=== PATIENT | female | born 1990 | race Caucasian/White ===

== ENCOUNTER 2018-12-16 19:17 | Emergency (ER) | payer OTHER ==
[2018-12-16 19:54] LABS: Urine Blood NEGATIVE (NEG); Urine Glucose NEGATIVE (NEG); Urine Protein NEGATIVE (NEG); Urine Specific Gravity 1.025 (1.005-1.030); Urine pH 5.5 (5.0-7.0)
[2018-12-16] MEDS ORDERED: ONDANSETRON 4 MG/2 ML VIAL ONE (20:02)
[2018-12-16] MEDS ORDERED: NA CHLORIDE 0.9% 1,000 ML ONE (20:02)
[2018-12-16] MEDS ORDERED: DIPHENOX/ATROP SULF 1 TAB PO ONE (20:02)
[2018-12-16] MEDS ORDERED: ACETAMINOPHEN 325 MG TABLET ONE (20:03)
[2018-12-16 20:13] LABS: Absolute Lymphocytes (CBC) 0.5 K/uL (0.7-4.9); Basophils % 1.6 % (0-1.3); Hematocrit 40.7 % (36.0-45.0); Lymphocytes % 3.7 % (15.3-44.8); MPV 9.7 fL (7.6-11.3); RBC Red Blood Cell Count 4.69 M/uL (3.86-4.86)
[2018-12-16 20:40] LABS: Blood Morphology Comment NOT SEEN (NOT SEEN); Platelet Estimate ADEQ; Urine White Blood Cell Casts OK
[2018-12-16 20:44] LABS: ALT/SGPT 15 U/L (12-78); AST/SGOT 8 U/L (15-37); Albumin 3.2 g/dL (3.4-5.0); Alkaline Phosphatase 58 U/L (45-117); BUN Blood Urea Nitrogen 9 mg/dL (7-18); Bicarbonate 24 mmol/L (21-32); Bilirubin Direct < 0.1 mg/dL (0-0.2); Bilirubin Total 0.2 mg/dL (0.2-1.0); Glucose Level 99 mg/dL (74-106); HCG, Quantitative 5692 mIU/mL (1-3); Lipase 117 U/L (73-393); Potassium 4.3 mmol/L (3.5-5.1); Protein, Total 7.6 g/dL (6.4-8.2); Sodium Level 138 mmol/L (136-145)
[2018-12-16] MEDS ORDERED: NA CHLORIDE 0.9% 500 ML ONE (21:22)
[2018-12-16 22:24] LABS: Absolute Lymphocytes (CBC) 0.7 K/uL (0.7-4.9); Basophils % 0.3 % (0-1.3); Hematocrit 35.5 % (36.0-45.0); Lymphocytes % 4.6 % (15.3-44.8); MPV 9.4 fL (7.6-11.3); RBC Red Blood Cell Count 4.07 M/uL (3.86-4.86)
--- NOTE | 2018-12-16 23:06 | EDPHYS ---
Physician Documentation [facility] Name: Jaqueline Coffman Age: 28 yrs Sex: Female : 1990 Arrival Date: 12/16/2018 Time: 19:20 Bed 27 Private MD: ED Physician Riaz Sargent HPI: 12/16 19:58 This 28 yrs old Female presents to ER via Ambulatory with complaints of pkl Vomiting/Diarrhea, 14 WEEKS , ABD PAIN. 19:58 The patient presents to the emergency department with nausea, vomiting, diarrhea. pkl Onset: The symptoms/episode began/occurred just prior to arrival, 1 hour(s) ago. Patient said she is about 14 weeks . No care at present. CHEMIST STEROIDS: 19:31 1 la1 20:14 LMP 08/12/2018 ea Historical: - Allergies: 19:31 No Known Allergies; la1 - Home Meds: 19:31 None [Active]; la1 - PMHx: 19:31 None; la1 - Immunization history:: Adult Immunizations up to date. - Social history:: Smoking status: Patient/guardian denies using tobacco. - Ebola Screening: : No symptoms or risks identified at this time. ROS: 19:58 Eyes: Negative for injury, pain, redness, and discharge, ENT: Negative for injury, pkl pain, and discharge, Neck: Negative for injury, pain, and swelling, Cardiovascular: Negative for chest pain, palpitations, and edema, Respiratory: Negative for shortness of breath, cough, wheezing, and pleuritic chest pain. 19:58 Abdomen/GI: Positive for nausea, vomiting, and diarrhea. 19:58 Back: Negative for acute changes. 19:58 : Negative for urinary symptoms. 19:58 MS/extremity: Negative for acute changes. 19:58 Skin: Negative for rash. 19:58 Neuro: Negative for altered mental status. Exam: 19:58 Head/Face: Normocephalic, atraumatic. Eyes: Pupils equal round and reactive to light, pkl extra-ocular motions intact. Lids and lashes normal. Conjunctiva and sclera are non-icteric and not injected. Cornea within normal limits. Periorbital areas with no swelling, redness, or edema. ENT: Nares patent. No nasal discharge, no septal abnormalities noted. Tympanic membranes are normal and external auditory canals are clear. Oropharynx with no redness, swelling, or masses, exudates, or evidence of obstruction, uvula midline. Mucous membranes moist. Neck: Trachea midline, no thyromegaly or masses palpated, and no cervical lymphadenopathy. Supple, full range of motion without nuchal rigidity, or vertebral point tenderness. No Meningismus. Chest/axilla: Normal chest wall appearance and motion. Nontender with no deformity. No lesions are appreciated. Cardiovascular: Regular rate and rhythm with a normal S1 and S2. No gallops, murmurs, or rubs. Normal PMI, no JVD. No pulse deficits. Respiratory: Lungs have equal breath sounds bilaterally, clear to auscultation and percussion. No rales, rhonchi or wheezes noted. No increased work of breathing, no retractions or nasal flaring. 19:58 Abdomen/GI: Bowel sounds: active, Palpation: soft, mild abdominal tenderness, in the right upper quadrant and left upper quadrant. 19:58 Back: Exam negative for acute changes. 19:58 : Exam negative for acute changes. 19:58 Musculoskeletal/extremity: Exam is negative for acute changes. 19:58 Skin: Exam negative for rash. 19:58 Neuro: Orientation: is normal, Mentation: is normal, Cranial nerves: grossly normal, Motor: is normal. Vital Signs: 19:31 BP 109 / 73; Pulse 78; Resp 16; Temp 97.8; Pulse Ox 98% on R/A; Weight 68.04 kg; Height la1 5 ft. 3 in. (160.02 cm); 20:00 BP 106 / 72; Pulse 80; Resp 18; Pulse Ox 99% on R/A; ea 21:50 BP 104 / 66; Pulse 64; Resp 18; Pulse Ox 100% on R/A; ea 22:50 BP 110 / 70; Pulse 60; Resp 18; Temp 97.8; Pulse Ox 98% ; ea 19:31 Body Mass Index 26.57 (68.04 kg, 160.02 cm) la1 MDM: 19:33 Patient medically screened. pkl 22:58 Data reviewed: vital signs, nurses notes, lab test result(s), radiologic studies, pkl ultrasound. ED course: Patient feeling better. Discussed lab. and imaging studies with patient. Advised to follow up with PCP in 2 to 3 days. Patient understood instruction. 12/16 19:49 Order name: Urine Dipstick--Ancillary (enter results); Complete Time: 20:18 ar5 12/16 19:49 Order name: Urine --Ancillary (enter results); Complete Time: 20:18 ar5 12/16 19:57 Order name: Basic Metabolic Panel; Complete Time: 21:00 pkl 12/16 19:57 Order name: CBC with Diff; Complete Time: 20:44 pkl 12/16 19:57 Order name: Creatinine for Radiology; Complete Time: 20:44 pkl 12/16 19:57 Order name: Hepatic Function; Complete Time: 21:00 pkl 12/16 19:57 Order name: Lipase; Complete Time: 21:00 pkl 12/16 19:57 Order name: Quantitative Hcg; Complete Time: 21:00 pkl 12/16 19:57 Order name: Rh Typing; Complete Time: 20:44 pkl 12/16 20:19 Order name: CBC Smear Scan; Complete Time: 20:44 EDMS 12/16 20:20 Order name: US Abdomen Limited pkl 12/16 21:43 Order name: CBC with Diff; Complete Time: 22:55 ea 12/16 19:57 Order name: IV Saline Lock; Complete Time: 20:19 pkl 12/16 19:57 Order name: Labs collected and sent; Complete Time: 20:19 pkl 12/16 19:57 Order name: Heart Tones; Complete Time: 20:27 pkl 12/16 21:03 Order name: OB Limited EDMS Administered Medications: 20:13 Drug: Zofran 4 mg Route: IVP; Site: right antecubital; ea 21:58 Follow up: Response: No adverse reaction; Marked relief of symptoms ea 20:19 Drug: NS 0.9% 1000 ml Route: IV; Rate: 1000 ml; Site: right antecubital; ea 21:58 Follow up: Response: No adverse reaction; IV Status: Completed infusion; IV Intake: ea 1000ml 20:19 Drug: Tylenol 650 mg Route: PO; ea 21:58 Follow up: Response: No adverse reaction ea 20:19 Drug: LoMOTIL 1 tabs Route: PO; ea 21:58 Follow up: Response: No adverse reaction ea 21:39 Drug: NS 0.9% 500 ml Route: IV; Rate: bolus; Site: right antecubital; ea 22:18 Follow up: IV Status: Completed infusion; IV Intake: 500ml ea Disposition: 12/16/18 23:04 Discharged to Home. Impression: Gastroenteritis. Leukocytosis. 2 nd trimester . - Condition is Stable. - Prescriptions for Amoxicillin 500 mg Oral Capsule - take 1 capsule by ORAL route every 8 hours for 5 days; 15 tablet. Lomotil 2.5- 0.025 mg Oral Tablet - take 1 tablet by ORAL route once daily As needed; 5 tablet. - Medication Reconciliation Form, Thank You Letter, Antibiotic Education, Prescription Opioid Use form. - Follow up: Private Physician; When: 1 - 2 days; Reason: Re-evaluation by your physician. - Problem is new. - Symptoms have improved. Signatures: Dispatcher [employer] EDMS Riaz Sargent MD MD pkLes Munson RN RN Marion Haider RN RN ea Corrections: (The following items were deleted from the chart) 20:33 20:21 Transvaginal Study (Probe)+[email or web address] ordered. EDVT EDMS 21:03 20:33 TRANSVAG OB ordered. EDVT EDMS 23:21 23:04 12/16/2018 23:04 Discharged to Home. Impression: Gastroenteritis. Leukocytosis. 2 ea nd trimester . Condition is Stable. Forms are Medication Reconciliation Form, Thank You Letter, Antibiotic Education, Prescription Opioid Use. Follow up: Private Physician; When: 1 - 2 days; Reason: Re-evaluation by your physician. Problem is new. Symptoms have improved. pkl
--- NOTE | 2018-12-16 23:06 | ER ---
Nurse's Notes [facility] Name: Jaqueline Coffman Age: 28 yrs Sex: Female : 1990 Arrival Date: 12/16/2018 Time: 19:20 Bed 27 Private MD: Diagnosis: Gastroenteritis. Leukocytosis. 2 nd trimester Presentation: 12/16 19:30 Presenting complaint: Patient states: I am about 14 weeks and started having la1 abd pain, nausea, and diarrhea that began one hour ago. Transition of care: patient was not received from another setting of care. Onset of symptoms was December 16, 2018. Risk Assessment: Do you want to hurt yourself or someone else? Patient reports no desire to harm self or others. Initial Sepsis Screen: Does the patient meet any 2 criteria? No. Patient's initial sepsis screen is negative. Does the patient have a suspected source of infection? No. Patient's initial sepsis screen is negative. Care prior to arrival: None. 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 - Social history:: Smoking status: Patient/guardian denies using tobacco. - Ebola Screening: : No symptoms or risks identified at this time. Screenin:18 Abuse screen: Denies threats or abuse. Nutritional screening: No deficits noted. ea Tuberculosis screening: No symptoms or risk factors identified. Fall Risk None identified. Assessment: 19:50 General: Appears uncomfortable, Behavior is appropriate for age. Pain: Complains of ea pain in left upper quadrant and right upper quadrant. Neuro: Level of Consciousness is awake, alert, obeys commands, Oriented to person, place, time, situation. Cardiovascular: Patient's skin is warm and dry. Respiratory: Airway is patent Respiratory effort is even, unlabored, Respiratory pattern is regular, symmetrical. GI: Abdomen is non-distended, Bowel sounds present X 4 quads. Abdomen is tender to palpation in right upper quadrant and left upper quadrant Reports upper abdominal pain, diarrhea, vomiting. Derm: Skin is pink, warm \T\ dry. 20:26 Reassessment: Patient and/or family updated on plan of care and expected duration. Pain ea level reassessed. Patient is alert, oriented x 3, equal unlabored respirations, skin warm/dry/pink. 21:58 Reassessment: Patient and/or family updated on plan of care and expected duration. Pain ea level reassessed. Patient is alert, oriented x 3, equal unlabored respirations, skin warm/dry/pink. 22:15 Reassessment: Patient and/or family updated on plan of care and expected duration. Pain ea level reassessed. Patient is alert, oriented x 3, equal unlabored respirations, skin warm/dry/pink. Awaiting on lab results. 23:17 Reassessment: Patient and/or family updated on plan of care and expected duration. Pain ea level reassessed. Patient is alert, oriented x 3, equal unlabored respirations, skin warm/dry/pink. Discharge instructions given to patient, verbalized the understanding of instruction. Pt reports she feels better. Pt left ambulatory accompanied by mother, pt tolerating well. Vital Signs: 19:31 BP 109 / 73; Pulse 78; Resp 16; Temp 97.8; Pulse Ox 98% on R/A; Weight 68.04 kg; Height la1 5 ft. 3 in. (160.02 cm); 20:00 BP 106 / 72; Pulse 80; Resp 18; Pulse Ox 99% on R/A; ea 21:50 BP 104 / 66; Pulse 64; Resp 18; Pulse Ox 100% on R/A; ea 22:50 BP 110 / 70; Pulse 60; Resp 18; Temp 97.8; Pulse Ox 98% ; ea 19:31 Body Mass Index 26.57 (68.04 kg, 160.02 cm) la1 Vitals: 20:26 Heart Tones 158. ea ED Course: 19:20 Patient arrived in ED. ag3 19:31 Triage completed. la1 19:31 Arm band placed on left wrist. la1 19:33 Riaz Sargent MD is Attending Physician. pkl 19:52 Marion Valladares RN is Primary Nurse. ea 19:58 Inserted saline lock: 20 gauge in right antecubital area, using aseptic technique. ea Blood collected. 20:18 Patient has correct armband on for positive identification. Bed in low position. Call ea light in reach. 21:03 US Abdomen Limited In Process Unspecified. EDMS 21:03 OB Limited In Process Unspecified. EDMS 23:00 IV discontinued, intact, bleeding controlled, No redness/swelling at site. Pressure ea dressing applied. 23:18 No provider procedures requiring assistance completed. ea Administered Medications: 20:13 Drug: Zofran 4 mg Route: IVP; Site: right antecubital; ea 21:58 Follow up: Response: No adverse reaction; Marked relief of symptoms ea 20:19 Drug: NS 0.9% 1000 ml Route: IV; Rate: 1000 ml; Site: right antecubital; ea 21:58 Follow up: Response: No adverse reaction; IV Status: Completed infusion; IV Intake: ea 1000ml 20:19 Drug: Tylenol 650 mg Route: PO; ea 21:58 Follow up: Response: No adverse reaction ea 20:19 Drug: LoMOTIL 1 tabs Route: PO; ea 21:58 Follow up: Response: No adverse reaction ea 21:39 Drug: NS 0.9% 500 ml Route: IV; Rate: bolus; Site: right antecubital; ea 22:18 Follow up: IV Status: Completed infusion; IV Intake: 500ml ea Intake: 21:58 IV: 1000ml; Total: 1000ml. ea 22:18 IV: 500ml; Total: 1500ml. ea Outcome: 23:04 Discharge ordered by . pksharona 23:19 Discharged to home ambulatory, with family. ea 23:19 Condition: stable 23:19 Discharge instructions given to patient, Instructed on discharge instructions, follow up and referral plans. medication usage, Demonstrated understanding of instructions, follow-up care, medications, Prescriptions given X 2. 23:21 Patient left the ED. ea Signatures: Dispatcher [employer] Riaz Guadarrama MD MD pkl Attema, Lee RN RN Marion Haider, RN RN Wanda Miguel
--- NOTE | 2018-12-17 07:06 | RAD REPORT ---
EXAM DESCRIPTION: US - Abdomen Exam Limited - 12/16/2018 9:01 pm CLINICAL HISTORY: ABD PAIN COMPARISON: No comparisons FINDINGS: No gallstones, sludge or other abnormalities within the gallbladder lumen. There is no wal l thickening or pericholecystic fluid. No common duct stone or biliary tree dilatation identified. IMPRESSION: Normal gallbladder and biliary tree ultrasound.
--- NOTE | 2018-12-17 07:09 | RAD REPORT ---
EXAM DESCRIPTION: US - OB Limited - 12/16/2018 9:01 pm CLINICAL HISTORY: Abdominal pain, Preliminary findings provided at the time of the study. COMPARISON: None. FINDINGS: A single gestation is identified. No gross anatomic abnormality seen. Exam was not perform ed as a dedicated Ob assessment. Heart rate is 143 BPM. measurements are as follows: BPD:3.98 Centimeters 18 weeks 1 day HC:14.310 Centimeters 17 weeks 4 days AC:11.85 Centimeters 17 weeks 4 days HL:2.42 Centimeters 17 weeks 4 days FL:2.41 Centimeters 17 weeks 2 days The estimated gestational age (EGA) is 17 weeks 4 days with an KIRAN of 05/22/2019. The amniotic fluid volume is normal. No maternal adnexal abnormality. IMPRESSION: 1. Single gestation with an EGA of 17 weeks 4 days and an KIRAN of the 05/22/2019. 2. No gross abnormalities are identifiable. Exam is not a dedicated anatomic evaluation. 3. Grade 0, posterior placenta with no low-lying or placenta previa. No abruption or marginal hematom a. 4. Amniotic fluid volume is normal.
== END 2018-12-16 23:21 | disposition home or self-care (01) ==
LOC: ER 19:17
DX: O26.892 Other specified pregnancy related conditions, second trimester (principal); K52.9 Noninfective gastroenteritis and colitis, unspecified; D72.829 Elevated white blood cell count, unspecified
CPT/HCPCS: 36415; 76705; 76815; 80048; 80076; 81003; 81025; 83690; 84702; 85025; 86901; J2405; J7030

== ENCOUNTER 2019-04-26 21:51 | Emergency (ER) | payer OTHER ==
[2019-04-26] MEDS ORDERED: ACETAMINOPHEN 325 MG TABLET ONE (23:26)
[2019-04-26] MEDS ORDERED: ALBUTEROL 2.5 MG/3 ML NEB SOL ONE (23:26)
[2019-04-26] MEDS ORDERED: ACETAMINOPHEN 500 MG TAB ONE (23:28)
--- NOTE | 2019-04-26 23:55 | ER ---
Nurse's Notes [facility] Name: Jaqueline Coffman Age: 29 yrs Sex: Female : 1990 Arrival Date: 04/26/2019 Time: 22:03 Bed 6 Private MD: Diagnosis: Acute upper respiratory infection, unspecified Presentation: 04/26 22:15 Presenting complaint: Patient states: she has had a cough, sore throat, and difficulty bb breathing x 2 days pt is 8 months . Transition of care: patient was not received from another setting of care. Onset of symptoms was April 24, 2019. Risk Assessment: Do you want to hurt yourself or someone else? Patient reports no desire to harm self or others. Initial Sepsis Screen: Does the patient meet any 2 criteria? No. Patient's initial sepsis screen is negative. Does the patient have a suspected source of infection? No. Patient's initial sepsis screen is negative. Care prior to arrival: None. 22:15 Method Of Arrival: Ambulatory bb 22:15 Acuity: ROSALINDA 4 bb Triage Assessment: 22:16 General: Appears in no apparent distress. Behavior is calm, cooperative. Pain: Denies bb pain. EENT: Reports sore throat. Neuro: Level of Consciousness is awake, alert, obeys commands, Oriented to person, place, time, situation. Cardiovascular: Heart tones S1 S2 present Capillary refill < 3 seconds Patient's skin is warm and dry. Respiratory: Airway is patent Respiratory effort is even, unlabored, Respiratory pattern is tachypnea Breath sounds are clear bilaterally. GI: No signs and/or symptoms were reported involving the gastrointestinal system. :. : Reports she is 8 months . Derm: Skin is pink, warm \T\ dry. Musculoskeletal: Circulation, motion, and sensation intact. 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 - Social history:: Smoking status: Patient uses tobacco products, denies chronic smoking, but will smoke occasionally. - Ebola Screening: : No symptoms or risks identified at this time. Screenin:21 Abuse screen: Denies threats or abuse. Nutritional screening: No deficits noted. bb Tuberculosis screening: No symptoms or risk factors identified. Fall Risk None identified. Assessment: 22:21 Reassessment: No changes from previously documented assessment. see triage assessment. bb 23:45 Reassessment: Patient and/or family updated on plan of care and expected duration. Pain bb level reassessed. Patient is alert, oriented x 3, equal unlabored respirations, skin warm/dry/pink. family at bedside. 23:57 Reassessment: pt states she is feeling much better after the breathing treatment pt bb verbalized understanding of and agrees to plan of care discharge instructions given pt ambulated with steady gait to exit accompanied by family. Vital Signs: 22:16 BP 112 / 82; Pulse 109; Resp 22 S; Temp 98.6(O); Pulse Ox 99% on R/A; Weight 77.11 kg bb (R); Height 5 ft. 3 in. (160.02 cm) (R); Pain 0/10; 23:17 BP 118 / 75; Pulse 84; Resp 16 S; Temp 98.8(O); Pulse Ox 99% on R/A; bb 22:16 Body Mass Index 30.11 (77.11 kg, 160.02 cm) bb Vitals: 22:29 Heart Tones: 144. fl ED Course: 22:03 Patient arrived in ED. cf2 22:05 Le Ramirez FNP-C is [facility]. kb 22:05 Riaz Sargent MD is Attending Physician. kb 22:14 Felisha Pastor, YOLIS is Primary Nurse. bb 22:16 Triage completed. bb 22:16 Arm band placed on Patient placed in an exam room, on a stretcher, on pulse oximetry. bb Family accompanied patient. 22:21 Patient has correct armband on for positive identification. Bed in low position. Call bb light in reach. Adult w/ patient. Pulse ox on. NIBP on. 23:58 No provider procedures requiring assistance completed. Patient did not have IV access bb during this emergency room visit. Administered Medications: 23:25 Drug: Albuterol 2.5 mg Route: Inhalation; bb 23:57 Follow up: Response: Marked relief of symptoms bb 23:25 Drug: Tylenol 1000 mg Route: PO; bb 23:57 Follow up: Response: No adverse reaction bb Outcome: 23:54 Discharge ordered by . eliezer 23:58 Discharged to home ambulatory, with family. bb 23:58 Condition: stable 23:58 Discharge instructions given to patient, Instructed on discharge instructions, follow up and referral plans. medication usage, Demonstrated understanding of instructions, follow-up care, medications, Prescriptions given X 1. 23:59 Patient left the ED. bb Signatures: Le Ramirez, CHENTE GERMAN-Felisha Moreira RN RN Rosa Maria Zelaya mt, [place] cf2 Corrections: (The following items were deleted from the chart) 22:26 22:16 Social history: Smoking status: Patient/guardian denies using tobacco, emilie phan
--- NOTE | 2019-04-26 23:55 | EDPHYS ---
Physician Documentation [facility] Name: Jaqueline Coffman Age: 29 yrs Sex: Female : 1990 Arrival Date: 04/26/2019 Time: 22:03 Bed 6 Private MD: ED Physician Riaz Sargent HPI: 04/26 23:20 This 29 yrs old Female presents to ER via Ambulatory with complaints of kb Cough, Sore Throat, Shortness Of Breath. 23:20 The patient or guardian reports cough, that is intermittent, described as mild, kb difficulty breathing. Onset: The symptoms/episode began/occurred 2 day(s) ago. Severity of symptoms: At their worst the symptoms were moderate, in the emergency department the symptoms are unchanged. Modifying factors: The symptoms are alleviated by nothing, the symptoms are aggravated by nothing. Associated signs and symptoms: Pertinent positives: sore throat, Pertinent negatives: chest pain, diarrhea, ear ache, fever, nausea, rhinorrhea, vomiting. The patient has not experienced similar symptoms in the past. The patient has not recently seen a physician. Pt reports cough, sore throat, shortness of breath and chills for 2 days. 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 - Social history:: Smoking status: Patient uses tobacco products, denies chronic smoking, but will smoke occasionally. - Ebola Screening: : No symptoms or risks identified at this time. ROS: 23:18 Constitutional: Negative for fever, chills, and weight loss, Neck: Negative for injury, kb pain, and swelling, Cardiovascular: Negative for chest pain, palpitations, and edema, Abdomen/GI: Negative for abdominal pain, nausea, vomiting, diarrhea, and constipation, MS/Extremity: Negative for injury and deformity, Skin: Negative for injury, rash, and discoloration, Neuro: Negative for headache, weakness, numbness, tingling, and seizure. 23:18 ENT: Positive for rhinorrhea, sinus congestion. 23:18 Respiratory: Positive for cough, shortness of breath. Exam: 23:18 Constitutional: This is a well developed, well nourished patient who is awake, alert, kb and in no acute distress. Head/Face: Normocephalic, atraumatic. ENT: Nares patent. No nasal discharge, no septal abnormalities noted. Tympanic membranes are normal and external auditory canals are clear. Oropharynx with no redness, swelling, or masses, exudates, or evidence of obstruction, uvula midline. Mucous membranes moist. Neck: Trachea midline, no thyromegaly or masses palpated, and no cervical lymphadenopathy. Supple, full range of motion without nuchal rigidity, or vertebral point tenderness. No Meningismus. Chest/axilla: Normal chest wall appearance and motion. Nontender with no deformity. No lesions are appreciated. Cardiovascular: Regular rate and rhythm with a normal S1 and S2. No gallops, murmurs, or rubs. Normal PMI, no JVD. No pulse deficits. Respiratory: Lungs have equal breath sounds bilaterally, clear to auscultation and percussion. No rales, rhonchi or wheezes noted. No increased work of breathing, no retractions or nasal flaring. Abdomen/GI: Soft, non-tender, with normal bowel sounds. No distension or tympany. No guarding or rebound. No evidence of tenderness throughout. Skin: Warm, dry with normal turgor. Normal color with no rashes, no lesions, and no evidence of cellulitis. MS/ Extremity: Pulses equal, no cyanosis. Neurovascular intact. Full, normal range of motion. Neuro: Awake and alert, GCS 15, oriented to person, place, time, and situation. Cranial nerves II-XII grossly intact. Motor strength 5/5 in all extremities. Sensory grossly intact. Cerebellar exam normal. Normal gait. Vital Signs: 22:16 BP 112 / 82; Pulse 109; Resp 22 S; Temp 98.6(O); Pulse Ox 99% on R/A; Weight 77.11 kg bb (R); Height 5 ft. 3 in. (160.02 cm) (R); Pain 0/10; 23:17 BP 118 / 75; Pulse 84; Resp 16 S; Temp 98.8(O); Pulse Ox 99% on R/A; bb 22:16 Body Mass Index 30.11 (77.11 kg, 160.02 cm) bb MDM: 22:15 Patient medically screened. kb 23:18 Data reviewed: vital signs, nurses notes. Data interpreted: Pulse oximetry: on room air kb is 99 %. Interpretation: normal. 23:20 Counseling: I had a detailed discussion with the patient and/or guardian regarding: the kb historical points, exam findings, and any diagnostic results supporting the discharge/admit diagnosis, lab results, the need for outpatient follow up, a family practitioner, to return to the emergency department if symptoms worsen or persist or if there are any questions or concerns that arise at home. 04/26 22:23 Order name: Flu; Complete Time: 23:05 kb 04/26 22:23 Order name: Strep; Complete Time: 23:05 kb 04/26 23:05 Order name: Throat Culture EDMS Administered Medications: 23:25 Drug: Albuterol 2.5 mg Route: Inhalation; bb 23:57 Follow up: Response: Marked relief of symptoms bb 23:25 Drug: Tylenol 1000 mg Route: PO; bb 23:57 Follow up: Response: No adverse reaction bb Disposition: 04/27 01:26 Co-signature as Attending Physician, Riaz Sargent MD. pksharona Disposition: 04/26/19 23:54 Discharged to Home. Impression: Acute upper respiratory infection, unspecified. - Condition is Stable. - Discharge Instructions: Upper Respiratory Infection, Adult, Bjrq-[id number], Viral Respiratory Infection, [id number]-Tg-[id number]. - Prescriptions for Albuterol Sulfate 90 mcg/actuation - inhale 1-2 puff by INHALATION route every 4-6 hours; 1 Inhaler. - Medication Reconciliation Form, Thank You Letter, Antibiotic Education, Prescription Opioid Use form. - Follow up: Emergency Department; When: As needed; Reason: Worsening of condition. Follow up: Private Physician; When: 2 - 3 days; Reason: Recheck today's complaints, Continuance of care, Re-evaluation by your physician. Signatures: Dispatcher [employer] EDMS Le Rmairez, Riaz Simmons MD MD pkl Felisha Pastor, RN RN bb Corrections: (The following items were deleted from the chart) 04/26 22:26 22:16 Social history: Smoking status: Patient/guardian denies using tobacco, emilie bb 23:59 23:54 04/26/2019 23:54 Discharged to Home. Impression: Acute upper respiratory bb infection, unspecified. Condition is Stable. Discharge Instructions: Upper Respiratory Infection, Adult, Rfhs-[id number], Viral Respiratory Infection, [id number]-Ny-Xyjp. Forms are Medication Reconciliation Form, Thank You Letter, Antibiotic Education, Prescription Opioid Use. Follow up: Emergency Department; When: As needed; Reason: Worsening of condition. Follow up: Private Physician; When: 2 - 3 days; Reason: Recheck today's complaints, Continuance of care, Re-evaluation by your physician. kb
[2019-04-27 02:06] VITALS: O2SAT 99
[2019-04-27 02:07] VITALS: BP 118/75; TEMP 98.8
== END 2019-04-26 23:59 | disposition home or self-care (01) ==
LOC: ER 21:51
DX: O26.893 Other specified pregnancy related conditions, third trimester (principal); O99.333 Smoking (tobacco) complicating pregnancy, third trimester; Z3A.32 32 weeks gestation of pregnancy
CPT/HCPCS: 87070; 87081; 87804; 99284

== ENCOUNTER 2019-05-11 04:09 | Inpatient (IN) | payer OTHER ==
[2019-05-11] MEDS ORDERED: CARBOPROST TROME 250 MCG/ML IM PRN (04:29)
[2019-05-11] MEDS ORDERED: BUTORPHANOL 1 MG/ML INJ IV PRN (04:29)
[2019-05-11] MEDS ORDERED: METHYLERGONOVINE 0.2MG/ML AMP IM PRN (04:29)
[2019-05-11] MEDS ORDERED: Ringers Lactate 1,000 ML IV PRN (04:29)
[2019-05-11] MEDS ORDERED: PROMETHAZINE INJ 25 MG/ML AMP IM PRN (04:29)
[2019-05-11] MEDS ORDERED: MEPERIDINE HCL 25 MG/ML SYR IV PRN (04:29)
[2019-05-11 04:55] LABS: Absolute Lymphocytes (CBC) 1.7 K/uL (0.7-4.9); Basophils % 0.4 % (0-1.3); Hematocrit 36.4 % (36.0-45.0); Lymphocytes % 14.3 % (15.3-44.8); MPV 9.1 fL (7.6-11.3); RBC Red Blood Cell Count 4.28 M/uL (3.86-4.86)
[2019-05-11] MEDS ORDERED: OXYTOCIN/LR 20 UNIT/1,000 ML BAG IV SCH ×2 (05:00→13:00)
[2019-05-11] MEDS ORDERED: Ringers Lactate 1,000 ML IV SCH (05:00)
[2019-05-11 05:01] LABS: Urine Appearance CLEAR; Urine Bilirubin NEGATIVE (NEG); Urine Blood 1+ (NEG); Urine Color YELLOW; Urine Glucose NEGATIVE (NEG); Urine Protein NEGATIVE (NEG); Urine Specific Gravity 1.015 (1.005-1.030); Urine Urobilinogen 0.2 mg/dL (0.2-1.0)
[2019-05-11 05:35] VITALS: BMI 29.5
[2019-05-11 05:36] LABS: Urine Bacteria 20-50 /HPF (<20); Urine RBC <5 /HPF (NONE SEEN); Urine Urothelial Cells <5 /HPF (NONE SEEN)
[2019-05-11] MEDS ORDERED: INFLUENZA VACCINE (for 3y+) 0.5 ML DOSE IMVAC ONE (08:00)
[2019-05-11] MEDS ORDERED: FENTANYL/BUPIVACAINE/NS/PF 200 MCG/100 ML BAG EP PRN (08:20)
[2019-05-11] MEDS ORDERED: FENTANYL CITR 100 MCG/2 ML IV ONE (08:20)
[2019-05-11] MEDS ORDERED: BUPIVACAINE 0.25% PF 30 ML VIAL ONE (08:34)
[2019-05-11] MEDS ORDERED: FENTANYL CITR 100 MCG/2 ML ONE (08:56)
--- NOTE | 2019-05-11 11:05 | PREOPHP ---
Date of Admission: 05/11/2019 A 29-year-old primigravida, 39 weeks 1 day, Rh positive, immune to Rubella. Negative beta strep scre en. Patient is 3.5 cm, dia regularly. Vital signs are normal. Rupture of membranes, clear fluid. Labor talk given. Anticipate delivery sometime later today. LAVINIA/HUNTER Voice ID: [id number]
--- NOTE | 2019-05-11 11:20 | PN ---
Patient is in active phase of labor. She is a good 4, maybe 4.5, 80% effaced, vertex still, -1 to al most 0 station. She has had 1 mg of Stadol, but wants epidural. We will order epidural at this poin t. Full discussion. LAVINIA/HUNTER Voice ID: [id number] Report ID: [id number]
--- NOTE | 2019-05-11 12:11 | PN ---
Patient has her epidural, was comfortable. Had lip of cervix, but then push past that. She will now begin pushing regularly. She is very strong woman, should be able to accomplish delivery here in th e next 30 minutes to an hour if not sooner. Nurse was instructed to put a scalp electrode on if ther e is any concern about the heart tone since it is more difficult to keep track of the baby at t his point. LAVINIA/HUNTER Voice ID: [id number] Report ID: [id number]
[2019-05-11] MEDS ORDERED: LIDOCAINE 1% MPF 30 ML VIAL ONE (12:36)
[2019-05-11] MEDS ORDERED: DIPHENHYDRAMINE 25 MG TAB/CAP PO PRN (12:55)
[2019-05-11] MEDS ORDERED: DOCUSATE NA/SENNA CONC 1 TAB PO PRN (12:55)
[2019-05-11] MEDS ORDERED: ACETAMINOPHEN 500 MG TAB PO PRN (12:55)
[2019-05-11] MEDS ORDERED: Oxycodone HCl/Acetaminophen 1 TAB TAB PO PRN ×2 (12:55)
[2019-05-11] MEDS ORDERED: BISACODYL 10 MG RECTAL SUPP RECT PRN (12:55)
[2019-05-11] MEDS: IBUPROFEN 600 MG TAB PO PRN (18:01)
[2019-05-11] MEDS ORDERED: BUPIVACAINE 0.25% PF 30 ML VIAL IV ONE (18:22)
--- NOTE | 2019-05-11 19:56 | OP ---
Surgeon: Bill Rendon MD This is a primigravida at 39 weeks 1 day, came in for labor induction, 3 cm on admission, 3.5 cm rupt ure of membranes, clear fluid. Stadol 1 mg IV, Phenergan 25 mg IM at 4 to 5 cm. Requested and recei arron epidural anesthesia, which gave good effect during remainder of labor and delivery. Second stage of approximately 45 minutes. Spontaneous vaginal delivery of an estimated 7-pound male infant, Apga rs 9 and 9. 3 small first-degree lacerations, all sutured with 2-0 chromic running locked stitches. 1 on the right labia minora. 2 on the labia minora on the left and 1 [id number] at the posteri or fourchette. Schultze delivery of the placenta, which was inspected and noted to be intact and nor mal. Less than 350 mL blood loss. Rh positive, immune to Rubella. Negative beta strep screen. Adrienne erated all procedures well. Final Diagnoses: Term intrauterine at 39 weeks 1 day, labor induction, vaginal delivery, e pidural anesthesia. LAVINIA/HUNTER Voice ID: [id number] Report ID: [id number]
[2019-05-12 04:50] LABS: RPR (Rapid Plasma Reagin) NON-REACT (NON-REACT)
[2019-05-12] MEDS: IBUPROFEN 600 MG TAB PO PRN (04:50)
[2019-05-12] MEDS: METHYLERGONOVINE 0.2 MG TAB PO SCH ×2 (07:58→11:46)
[2019-05-12 11:46] VITALS: BP 122/68; TEMP 98.4
[2019-05-12] MEDS ORDERED: INFLUENZA VACCINE (for 3y+) 0.5 ML DOSE IMVAC ONE (13:00)
[2019-05-12] MEDS ORDERED: Tdap (Diph,Pertuss(Acell),Tet Vac) 0.5 ML SYR IMVAC ONE (13:00)
--- NOTE | 2019-05-13 00:26 | DS ---
Date of Discharge: 05/12/2019 History: A 29-year-old primigravida, 39 weeks 1 day, delivered an estimated 7-pound male afte r 45 minutes second stage. Had Stadol IV 1 mg, 1 time during the first stage of labor. Three small first-degree lacerations all repaired with 2-0 chromic, a total of about 8 stitches. Ian toledo ry of the placenta. Uterus contracted down well with IV drip Pitocin. Estimated blood loss 350 mL. Rh positive, immune to Rubella. Negative beta strep screen. , is afebrile, ambulating an d voiding. Lochia is normal. No post epidural problems. She requests no analgesics on dismissal, w ill take Motrin. She has not had her Tdap shot, says she will get that before she leaves. This morn ing, the patient reported nurses after I made rounds that she has a little bit of bleeding more than what she would like to see. We will start her on Methergine and keep her until this afternoon and ev aluate as the day goes on. Right now, she is completely asymptomatic and ambulating without problems . Final Diagnoses: At this point, intrauterine gestation, 39 weeks 1 day, vaginal delivery, epidural a nesthesia. Tdap pending. LAVINIA/HUNTER Voice ID: [id number] Report ID: [id number]
[2019-05-14 05:34] LABS: HBsAG Nonreactive (Nonreactive)
== END 2019-05-12 15:50 | disposition home or self-care (01) | DRG 807 ==
LOC: 2ND-WC 04:09
PROVIDERS: ADMIT Specialist; ATTEND Specialist
PROC: 10E0XZZ Delivery of Products of Conception, External Approach (ICD-10-PCS; principal; 2019-05-11)
PROC: 10907ZC Drainage of Amniotic Fluid, Therapeutic from Products of Conception, Via Natural or Artificial Opening (ICD-10-PCS; 2019-05-11)
PROC: 0HQ9XZZ Repair Perineum Skin, External Approach (ICD-10-PCS; 2019-05-11)
DX: O70.0 First degree perineal laceration during delivery (principal); Z37.0 Single live birth; Z3A.39 39 weeks gestation of pregnancy
CPT/HCPCS: 36415; 81001; 85025; 86592; 86901; 87086; 87088; 87340; 90471; 90715; J0595; J2210; J2550; J2590; J3010; J7120; Q2035

== ENCOUNTER 2021-11-11 20:11 | Observation (INO) | payer OTHER ==
[2021-11-11 22:11] LABS: Urine Blood Negative (Negative); Urine Glucose Negative (Negative); Urine Protein Negative (Negative); Urine Specific Gravity 1.015 (1.005-1.030)
[2021-11-11] MEDS ORDERED: LIDOCAINE VISCOUS 2% SOLN 15 ML UDC ONE (22:11)
[2021-11-11] MEDS ORDERED: MAGNES/ALUMIN/SIMET 30ML UCUP ONE (22:11)
[2021-11-11 22:19] LABS: Urine Specific Gravity/Preg 1.015 (1.005-1.030)
[2021-11-11] MEDS ORDERED: ONDANSETRON 4 MG/2 ML VIAL ONE (22:25)
[2021-11-11] MEDS ORDERED: NA CHLORIDE 0.9% 1,000 ML ONE (22:25)
[2021-11-11] MEDS ORDERED: FAMOTIDINE 20 MG/2 ML VIAL IV ONE (22:25)
[2021-11-11 22:31] LABS: Absolute Lymphocytes (CBC) 1.7 K/uL (0.7-4.9); Hematocrit 40.2 % (36.0-45.0); Lymphocytes % 14.2 % (15.3-44.8); MCV 83.2 fL (80-100); MPV 9.9 fL (7.6-11.3); RBC Red Blood Cell Count 4.83 M/uL (3.86-4.86)
[2021-11-11 23:04] LABS: Albumin 2.6 g/dL (3.4-5.0); Bilirubin Total 0.3 mg/dL (0.2-1.0); Potassium 4.3 mmol/L (3.5-5.1); Protein, Total 7.4 g/dL (6.4-8.2)
[2021-11-11 23:08] LABS: Urine Bacteria >50 /HPF (<20); Urine RBC <5 /HPF (None Seen)
[2021-11-12] MEDS ORDERED: NA CHLORIDE 0.9% 1,000 ML ONE ×2 (00:09→10:05)
--- NOTE | 2021-11-12 01:34 | ER ---
Nurse's Notes [facility] Name: Jaqueline Coffman Age: 31 yrs Sex: Female : 1990 Arrival Date: 11/11/2021 Time: 20:12 Bed 6 Private MD: Diagnosis: Hypercalcemia;32 weeks gestation of ;Nausea with vomiting, unspecified Presentation: 11/11 20:24 Chief complaint: Patient states: "i have had gastric reflux for the past 4-5 days. I hb have not been able to keep anything down.". Coronavirus screen: Vaccine status: Patient reports being unvaccinated. Ebola Screen: Patient negative for fever greater than or equal to 101.5 degrees Fahrenheit, and additional compatible Ebola Virus Disease symptoms Patient denies exposure to infectious person. Patient denies travel to an Ebola-affected area in the 21 days before illness onset. Initial Sepsis Screen: Does the patient meet any 2 criteria? HR > 90 bpm. Does the patient have a suspected source of infection? No. Patient's initial sepsis screen is negative. Risk Assessment: Do you want to hurt yourself or someone else? Patient reports no desire to harm self or others. Onset of symptoms is unknown. 20:24 Method Of Arrival: Ambulatory hb 20:24 Acuity: ROSALINDA 3 hb Triage Assessment: 20:25 General: Appears uncomfortable, Behavior is calm, cooperative, appropriate for age. hb Pain: Denies pain. Complains of pain in chest Pain currently is 6 out of 10 on a pain scale. 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 Patient has never been vaccinated. - Social history:: Smoking status: Patient/guardian denies using tobacco, Stopped _ months ago 1. Screenin:05 Abuse screen: Denies threats or abuse. Denies injuries from another. Nutritional as6 screening: No deficits noted. Tuberculosis screening: No symptoms or risk factors identified. Fall Risk None identified. Assessment: 21:05 General: Appears uncomfortable, Behavior is calm, cooperative. Pain: Complains of pain as6 in epigastric area. Neuro: Level of Consciousness is awake, alert. Cardiovascular:. Respiratory: Respiratory effort is even, unlabored. 23:56 General: poison control notified of pt TUMS intake, their recommendation is to consult as6 OB. Vital Signs: 20:24 BP 140 / 99; Pulse 123; Resp 18; Temp 98.3; Pulse Ox 100% ; Weight 77.11 kg; Height 5 hb ft. 3 in. (160.02 cm); Pain 6/10; 21:04 BP 142 / 99; Pulse 86; Resp 18 S; Pulse Ox 98% on R/A; as6 11/12 00:18 BP 119 / 79; Pulse 82; Resp 16 S; Pulse Ox 100% on R/A; as6 11/11 20:24 Body Mass Index 30.11 (77.11 kg, 160.02 cm) hb Vitals: 11/11 22:25 Heart Tones 156. as6 ED Course: 20:12 Patient arrived in ED. jj6 20:19 Rainer Murphy, RN is Primary Nurse. as6 20:25 Triage completed. hb 20:25 Arm band placed on Patient placed in an exam room. hb 21:05 Bed in low position. Call light in reach. Side rails up X 1. Pulse ox on. NIBP on. PO as6 fluids given. 21:16 Jose Wilson MD is Attending Physician. mh7 22:16 Initial lab(s) drawn, by ut, sent to lab. Inserted saline lock: 20 gauge in left tw5 antecubital area, using aseptic technique. Blood collected. 22:18 CBC with Diff Sent. tw5 22:18 CMP Sent. tw5 22:18 Lipase Sent. tw5 22:36 Urine Culture Sent. mh5 22:36 Urine Microscopic Only Sent. mh5 22:52 Urine Culture Sent. mh5 22:52 Urine Microscopic Only Sent. mh5 23:05 Notified ED physician of a critical lab result(s). calcium of 15.2 Dr Wilson notified. bb 11/12 00:20 Diet tray given. as6 01:33 Bill Rendon MD is Hospitalizing Provider. mh7 02:15 COVID-19 SARS RT PCR (Document "Date of Onset" if Symptomatic) Sent. mh5 04:11 No provider procedures requiring assistance completed. Patient admitted, IV remains in as6 place. Administered Medications: 11/11 22:07 Drug: GI Cocktail without - (Maalox Suspension 30 ml, Lidocaine Liquid 2 % 15 tw5 ml) Route: PO; 11/12 00:19 Follow up: Response: No adverse reaction as6 11/11 22:25 Drug: NS 0.9% 1000 ml Route: IV; Rate: 1 bolus; Site: left antecubital; as6 11/12 00:19 Follow up: Response: No adverse reaction; IV Status: Infusion continued; IV Intake: as6 1000ml 11/11 22:25 Drug: Pepcid (famotidine) 20 mg Route: IVP; Site: left antecubital; as6 11/12 00:19 Follow up: Response: No adverse reaction as6 11/11 22:25 Drug: Zofran (Ondansetron) 4 mg Route: IVP; Site: left antecubital; as6 11/12 00:19 Follow up: Response: No adverse reaction as6 00:19 Drug: NS 0.9% 1000 ml Route: IV; Rate: 1000 ml; Site: left antecubital; as6 04:12 Follow up: Response: No adverse reaction; IV Status: Infusion continued; IV Intake: as6 1000ml 02:10 Not Given (Patient Refused): Phenergan (promethazine) 12.5 mg IVP once as6 02:10 Drug: Macrobid (nitrofurantoin) 100 mg Route: PO; as6 04:12 Follow up: Response: No adverse reaction as6 Medication: 04:11 VIS not applicable for this client. as6 Intake: 00:19 IV: 1000ml; Total: 1000ml. as6 04:12 IV: 1000ml; Total: 2000ml. as6 Outcome: 01:34 Decision to Hospitalize by Provider. mh7 04:11 Admitted to ER Hold. Please see [facility] for further documentation. as6 04:11 Condition: stable 04:11 Instructed on the need for admit. 15:45 Patient left the ED. 6 Signatures: Felisha Pastor RN RN bb Baxter, Heather, RN RN hb Martinez, Maria 5 Jose Wilson MD MD 7 Eugenia Alcaraz tw5 Amanda Angel jj6 Rainer Murphy, RN RN as6 Amanda Adame RN RN jh6
--- NOTE | 2021-11-12 01:35 | EDPHYS ---
Physician Documentation [facility] Name: Jaqueline Coffman Age: 31 yrs Sex: Female : 1990 Arrival Date: 11/11/2021 Time: 20:12 Bed 6 Private MD: ED Physician Jose Wilson HPI: 11/11 21:30 This 31 yrs old Female presents to ER via Ambulatory with complaints of Acid Reflux. mh7 21:30 The patient presents to the emergency department with nausea, that is moderate, mh7 vomiting, that is intermittent, described as clear fluid. Onset: The symptoms/episode began/occurred 5 day(s) ago. Possible causes: . The symptoms are aggravated by food , The symptoms are alleviated by nothing. 21:30 Associated signs and symptoms: Pertinent positives: abdominal pain, nausea, vomiting, mh7 Pertinent negatives: anorexia, belching, constipation, diarrhea, dysuria, fever, flatulence, GI bleeding, hematuria, vaginal discharge. 21:30 Severity of symptoms: At their worst the symptoms were moderate 3 day(s) ago, in the 7 emergency department the symptoms have improved mildly. States that she is 8 months with nausea, vomiting, acid reflux, epigastric pain. Denies fever, chest pain, SOB, cough, dysuria, or vaginal bleeding.. DIRECTOR OF ESTATE: 20:25 Verified, does recall last period, "I just know I am 8 months ." hb Historical: - Allergies: 20:25 No Known Allergies; hb - Home Meds: 20:25 vitamins [Active]; hb - PMHx: 20:25 None; hb - PSHx: 20:25 None; hb - Immunization history:: Flu vaccine is not up to date. Patient has never been vaccinated. - Social history:: Smoking status: Patient/guardian denies using tobacco, Stopped _ months ago 1. ROS: 21:30 Constitutional: Negative for fever, chills, and weight loss, Eyes: Negative for injury, mh7 pain, redness, and discharge, ENT: Negative for injury, pain, and discharge, Neck: Negative for injury, pain, and swelling, Cardiovascular: Negative for chest pain, palpitations, and edema, Respiratory: Negative for shortness of breath, cough, wheezing, and pleuritic chest pain, Back: Negative for injury and pain, : Negative for injury, bleeding, discharge, and swelling, MS/Extremity: Negative for injury and deformity, Skin: Negative for injury, rash, and discoloration, Neuro: Negative for headache, weakness, numbness, tingling, and seizure, Psych: Negative for depression, anxiety, suicide ideation, homicidal ideation, and hallucinations, Allergy/Immunology: Negative for hives, rash, and allergies, Endocrine: Negative for neck swelling, polydipsia, polyuria, polyphagia, and marked weight changes, Hematologic/Lymphatic: Negative for swollen nodes, abnormal bleeding, and unusual bruising. Exam: 21:30 Head/Face: Normocephalic, atraumatic. Eyes: Pupils equal round and reactive to light, mh7 extra-ocular motions intact. Lids and lashes normal. Conjunctiva and sclera are non-icteric and not injected. Cornea within normal limits. Periorbital areas with no swelling, redness, or edema. Neck: Trachea midline, no thyromegaly or masses palpated, and no cervical lymphadenopathy. Supple, full range of motion without nuchal rigidity, or vertebral point tenderness. No Meningismus. Chest/axilla: Normal chest wall appearance and motion. Nontender with no deformity. No lesions are appreciated. Cardiovascular: Regular rate and rhythm with a normal S1 and S2. No gallops, murmurs, or rubs. Normal PMI, no JVD. No pulse deficits. Respiratory: Lungs have equal breath sounds bilaterally, clear to auscultation and percussion. No rales, rhonchi or wheezes noted. No increased work of breathing, no retractions or nasal flaring. Abdomen/GI: Soft, non-tender, with normal bowel sounds. No distension or tympany. No guarding or rebound. No evidence of tenderness throughout. Back: No spinal tenderness. No costovertebral tenderness. Full range of motion. 21:30 Skin: Warm, dry with normal turgor. Normal color with no rashes, no lesions, and no evidence of cellulitis. MS/ Extremity: Pulses equal, no cyanosis. Neurovascular intact. Full, normal range of motion. Neuro: Awake and alert, GCS 15, oriented to person, place, time, and situation. Cranial nerves II-XII grossly intact. Motor strength 5/5 in all extremities. Sensory grossly intact. Cerebellar exam normal. Normal gait. Psych: Awake, alert, with orientation to person, place and time. Behavior, mood, and affect are within normal limits. 21:30 Constitutional: The patient appears in no acute distress, alert, awake, uncomfortable. 21:30 : CVA tenderness, is absent, Pelvic Exam: The exam is refused by the patient/guardian. The risks and consequences are understood by the patient, Gravid exam: Fundal height: consistent with gestational age, Bladder: is normal. Vital Signs: 20:24 BP 140 / 99; Pulse 123; Resp 18; Temp 98.3; Pulse Ox 100% ; Weight 77.11 kg; Height 5 hb ft. 3 in. (160.02 cm); Pain 6/10; 21:04 BP 142 / 99; Pulse 86; Resp 18 S; Pulse Ox 98% on R/A; as6 11/12 00:18 BP 119 / 79; Pulse 82; Resp 16 S; Pulse Ox 100% on R/A; 6 11/11 20:24 Body Mass Index 30.11 (77.11 kg, 160.02 cm) hb MDM: 01:30 Differential diagnosis: Nonspecific abd pain, gastritis, pancreatitis, viral mh7 gastroenteritis, gastroenteritis. Data reviewed: vital signs, nurses notes, lab test result(s), CBC, electrolytes, urinalysis. Data interpreted: Pulse oximetry: on room air is 100 %. Interpretation: normal. Counseling: I had a detailed discussion with the patient and/or guardian regarding: the historical points, exam findings, and any diagnostic results supporting the discharge/admit diagnosis, lab results, the need for further work-up and treatment in the hospital. Response to treatment: the patient's symptoms have mildly improved after treatment. Physician consultation: Bill Rendon MD was contacted at 01:05, regarding patient's condition, and will see patient in inpatient room, would like consultation with Dr. Hwang. ED course: Patient reports that she has been taking a lot of Tums and drinking a lot of milk to help with acid reflux symptpms.. 01:34 Patient medically screened. [facility] 11/11 21:43 Order name: CBC with Diff; Complete Time: 23:02 [facility] 11/11 21:43 Order name: CMP; Complete Time: 00:40 [facility] 11/11 21:43 Order name: Lipase; Complete Time: 00:40 [facility] 11/11 22:11 Order name: Urine Dipstick-Ancillary; Complete Time: 22:14 [facility] 11/11 22:12 Order name: Urine --Ancillary (enter results); Complete Time: 22:38 11/11 22:15 Order name: Urine Microscopic Only; Complete Time: 23:29 [facility] 11/11 22:15 Order name: Urine Culture [facility] 11/11 23:44 Order name: HCG, Quantitative; Complete Time: 00:40 [facility] 11/12 01:37 Order name: COVID-19 SARS RT PCR (Document "Date of Onset" if Symptomatic) kd3 11/12 01:44 Order name: CBC with Automated Diff [facility] 11/12 01:44 Order name: CBC with Automated Diff [facility] 11/12 01:44 Order name: Comprehensive Metabolic Panel [facility] 11/12 01:44 Order name: Comprehensive Metabolic Panel [facility] 11/11 21:43 Order name: IV Saline Lock; Complete Time: 22:17 [facility] 11/11 21:43 Order name: Labs collected and sent; Complete Time: 22:17 [facility] 11/11 21:43 Order name: Urine Dipstick-Ancillary (obtain specimen); Complete Time: 22:11 [facility] 11/11 22:14 Order name: EKG; Complete Time: 22:15 [facility] 11/12 01:44 Order name: CONS Physician Consult [facility] 11/12 01:44 Order name: Full Liquid [facility] 11/12 06:01 Order name: Vitamin D, 25 ([place]), TOTAL [facility] 11/12 06:26 Order name: PTH Intact [facility] 11/12 12:45 Order name: Calcium Level [facility] 11/11 21:43 Order name: Heart Tones; Complete Time: 22:25 [facility] 11/11 22:14 Order name: EKG - Nurse/Tech; Complete Time: 22:44 [facility] Administered Medications: 11/11 22:07 Drug: GI Cocktail without - (Maalox Suspension 30 ml, Lidocaine Liquid 2 % 15 tw5 ml) Route: PO; 11/12 00:19 Follow up: Response: No adverse reaction 6 11/11 22:25 Drug: NS 0.9% 1000 ml Route: IV; Rate: 1 bolus; Site: left antecubital; 11/12 00:19 Follow up: Response: No adverse reaction; IV Status: Infusion continued; IV Intake: as6 1000ml 11/11 22:25 Drug: Pepcid (famotidine) 20 mg Route: IVP; Site: left antecubital; as6 11/12 00:19 Follow up: Response: No adverse reaction as6 11/11 22:25 Drug: Zofran (Ondansetron) 4 mg Route: IVP; Site: left antecubital; as6 11/12 00:19 Follow up: Response: No adverse reaction as 00:19 Drug: NS 0.9% 1000 ml Route: IV; Rate: 1000 ml; Site: left antecubital; as6 04:12 Follow up: Response: No adverse reaction; IV Status: Infusion continued; IV Intake: as6 1000ml 02:10 Not Given (Patient Refused): Phenergan (promethazine) 12.5 mg IVP once as6 02:10 Drug: Macrobid (nitrofurantoin) 100 mg Route: PO; as6 04:12 Follow up: Response: No adverse reaction as6 Disposition Summary: 11/12/21 01:34 Hospitalization Ordered Hospitalization Status: Inpatient Admission mh7 Provider: Bill Rendon Condition: Stable [facility] Problem: new [facility] Symptoms: have improved mh Bed/Room Type: Standard [facility] Location: [facility] ER HOLD(11/12/21 15:43) Room Assignment: ERHOLD-(11/12/21 15:43) Diagnosis - Hypercalcemia mh7 - 32 weeks gestation of mh7 - Nausea with vomiting, unspecified 7 Forms: - Medication Reconciliation Form 7 - SBAR form 7 Signatures: Dispatcher [employer] [facility] Dalila Ferro RN RN Thae Fuentes RN RN Gisselle Bardales RN RN Jesusita Carrillo Maurice, MD MD 7 Eugenia Alcaraz tw5 Rainer Murphy RN RN as6 Corrections: (The following items were deleted from the chart) 11/11 23:44 23:33 QUANTITATIVE HCG+C.LAB.BRZ ordered. [facility] 11/12 02:47 01:34 [facility] 7 02:47 01:34 [facility] 15:06 02:47 [facility] ER HOLD mw eb 15:06 02:47 ERHOLD- mw eb 15: 15:06 Telemetry/MedSurg (Inpatient) [facility] 15:43 15:[address] [place] [address]
[2021-11-12] MEDS ORDERED: MORPHINE 4 MG/ML SYR IV PRN (01:39)
[2021-11-12] MEDS ORDERED: ACETAMINOPHEN 500 MG TAB PO PRN (01:39)
[2021-11-12] MEDS ORDERED: ONDANSETRON 4 MG/2 ML VIAL IV PRN (01:39)
[2021-11-12] MEDS ORDERED: NA CHLORIDE 0.9% 1,000 ML IV SCH (02:00)
[2021-11-12] MEDS ORDERED: NITROFURAN MACRO 100 MG CAP PO ONE (02:11)
[2021-11-12 04:15] VITALS: BMI 30.1
--- NOTE | 2021-11-12 06:15 | P.CNS ---
Date of Consult: 11/12/21 Reason for Consult: Hypercalcemia management Requesting Physician: Dayana Rendon Chief Complaint: Heartburn History of Present Illness: 31-year-old lady who reports that she is 8 months was evaluated in the ER for episode of heartburn and abdominal discomfort. She reports that she been taking significant amount of Tums and milk to assist with management of heartburn related issues. She decided come to the ED because her abdomen continued to be very worse and more persistent and labs done in the emergency room was pertinent for elevated calcium of 15.2. Her other renal labs were within acceptable limits. She was asked to be evaluated by internal medicine service for hypercalcemia management. Allergies No Known Allergies Allergy (Unverified 05/11/19 04:27) Home Medications: Pnv73/Iron,Gluc/Folic/Dss/Dha [Citranatal Assure Combo Pack] 1 cap PO DAILY 05/11/19 - Family History Mother Notes: mom with asthma - Social History Smoking Status: Current some day smoker Alcohol use: No CD- Drugs: No Review of Systems General: Weakness, Malaise Eyes: Unremarkable ENT: Unremarkable Respiratory: Unremarkable Cardiovascular: Unremarkable Gastrointestinal: Other (Heartburn) Genitourinary: Unremarkable Musculoskeletal: Unremarkable Integumentary: Unremarkable Neurological: Unremarkable Physical Examination Temp Pulse Resp BP Pulse Ox 97.8 F 70 16 134/94 H 99 11/12/21 04:00 11/12/21 04:00 11/12/21 04:00 11/12/21 04:00 11/12/21 04:00 General: Alert, Oriented x3 HEENT: Atraumatic, Normocephalic Neck: Supple Respiratory: Normal air movement Cardiovascular: Regular rate/rhythm, Normal S1 S2 Gastrointestinal: Soft and benign Musculoskeletal: No swelling Neurological: Normal speech, Normal strength at 5/5 x4 extr Laboratory Data (last 24 hrs) 11/11/21 22:13: Sodium 135 L, Potassium 4.3, BUN 18, Creatinine 1.09, Glucose 86, Total Bilirubin 0.3, AST 14 L, ALT 20, Alkaline Phosphatase 130 H, Lipase 148 11/11/21 22:13: WBC 12.2 H, Hgb 13.4, Hct 40.2, Plt Count 194 Conclusions/Impression: Hypercalcemia Heartburn Plan: Present episode of hypercalcemia is deemed secondary to excessive use of antacids which include Tums. She does have elevated calcium of 15.2. We will start hydration with isotonic fluid for assistance with renal wasting of calcium. Would discontinue use of Tums for heartburn related issue. We will educate patient on appropriate need for checks and balances on use of OTC drugs Will continue to follow serum calcium level closely. Will obtain serum vitamin D and PTH to assist with further management recommendation for hypercalcemia. related issue to be managed by obstetric team.
[2021-11-12 09:23] VITALS: O2SAT 97
--- NOTE | 2021-11-12 12:41 | EKG ---
Test Date: 2021-11-11 Test Time: 22:44:55 Freight Loading Supervisor: MEASUREMENT RESULTS: Intervals: Rate: 63 TX: 128 QRSD: 80 QT: 352 QTc: 360 [place]: P: TX: 128 QRS: 60 T: 48 INTERPRETIVE STATEMENTS: Normal sinus rhythm Normal ECG No previous ECG available for comparison Electronically Signed On 11-12-21 12:39:33 CDT by Reilly Minaya
[2021-11-12 13:43] VITALS: BP 106/72; TEMP 97.8
--- OUTSIDE RECORDS SUMMARY | 2021-11-15 11:25 | XMS REPORT | Continuity of Care Document ---
:[address] [facility] t Address [address] [place] [address] [address] [place] [address] Care Team Providers Name Role Phone Unavailable Unavailable Unavailable Payers Payer Name Policy Type Policy Number Effective Date Expiration Date S ource Problems This patient has no known problems. Allergies, Adverse Reactions, Alerts Allergy Allergy Status Severity Reaction(s) Onset Inactive Treating Comm ents Source Name Type Date Date Clinician No Known DA Active U [facility] Drug 10-25 Allergie 00:00: s 00 Medications This patient has no known medications. Procedures This patient has no known procedures. Encounters Start End Encounter Admission Attending Care Care Encounter Source Date/Time Date/Time Type Type Clinicians Facility Department ID 2020-10-25 Inpatient [facility] [id number] [facility] 13:20:00 06 Results This patient has no known results.
== END 2021-11-12 15:46 | disposition home or self-care (01) ==
LOC: ER 20:11 → ERHOLD 11-12 01:37
PROVIDERS: ADMIT Specialist; ATTEND Specialist
DX: O26.893 Other specified pregnancy related conditions, third trimester (principal); E83.52 Hypercalcemia; R12 Heartburn; O99.333 Smoking (tobacco) complicating pregnancy, third trimester; Z3A.32 32 weeks gestation of pregnancy; Z20.822 Contact with and (suspected) exposure to COVID-19; Z82.5 Family history of asthma and other chronic lower respiratory diseases
CPT/HCPCS: 36415; 80053; 81003; 81015; 81025; 82306; 82310; 83690; 83970; 84702; 85025; 87086; 87088; 93005; 96361; 96374; 96375; 99285; G0378; J2405; J3490; J7030; U0003

== ENCOUNTER 2021-12-05 05:47 | Inpatient (IN) | payer OTHER ==
[2021-12-05] MEDS ORDERED: OXYTOCIN 10 UNIT/ML ML ONE (05:58)
[2021-12-05] MEDS ORDERED: Ringers Lactate 1,000 ML IV ONE ×3 (05:58→15:59)
--- OUTSIDE RECORDS SUMMARY | 2021-12-05 06:09 | XMS REPORT | Continuity of Care Document ---
:1990 Author Organization [facility] t Address [address] [place] [address] Care Team Providers Name Role Phone Unavailable Unavailable Unavailable Payers Payer Name Policy Type Policy Number Effective Date Expiration Date S ource Problems This patient has no known problems. Allergies, Adverse Reactions, Alerts Allergy Allergy Status Severity Reaction(s) Onset Inactive Treating Comm ents Source Name Type Date Date Clinician No Known DA Active U [facility] Drug 10-25 Allergie 00:00: s 00 Medications This patient has no known medications. Procedures This patient has no known procedures. Encounters Start End Encounter Admission Attending Care Care Encounter Source Date/Time Date/Time Type Type Clinicians Facility Department ID 2020-10-25 Inpatient [facility] [id number] [facility] 13:20:00 06 Results This patient has no known results.
[2021-12-05] MEDS ORDERED: METHYLERGONOVINE 0.2MG/ML AMP IM PRN (06:19)
[2021-12-05] MEDS ORDERED: CARBOPROST TROME 250 MCG/ML IM PRN (06:19)
[2021-12-05] MEDS ORDERED: Ringers Lactate 1,000 ML IV PRN (06:19)
[2021-12-05] MEDS ORDERED: BUTORPHANOL 1 MG/ML INJ ONE (06:54)
[2021-12-05 06:57] LABS: Absolute Lymphocytes (CBC) 1.9 K/uL (0.7-4.9); Hematocrit 34.9 % (36.0-45.0); Lymphocytes % 15.5 % (15.3-44.8); MPV 10.4 fL (7.6-11.3); RBC Red Blood Cell Count 4.26 M/uL (3.86-4.86)
[2021-12-05] MEDS ORDERED: OXYTOCIN/LR 20 UNIT/1,000 ML BAG IV SCH (07:00)
[2021-12-05] MEDS ORDERED: Ringers Lactate 1,000 ML IV SCH (07:00)
[2021-12-05] MEDS ORDERED: LIDOCAINE 1% 20 ML MDV ONE (07:12)
[2021-12-05] MEDS ORDERED: DOCUSATE NA/SENNA CONC 1 TAB PO PRN (07:17)
[2021-12-05] MEDS ORDERED: Oxycodone HCl/Acetaminophen 1 TAB TAB PO PRN (07:17)
[2021-12-05] MEDS ORDERED: BISACODYL 10 MG RECTAL SUPP RC PRN (07:17)
[2021-12-05] MEDS ORDERED: ACETAMINOPHEN 500 MG TAB PO PRN (07:17)
[2021-12-05] MEDS ORDERED: DIPHENHYDRAMINE 25 MG TAB/CAP PO PRN (07:17)
[2021-12-05 07:52] VITALS: BMI 32.1
[2021-12-05] MEDS: OXYTOCIN/LR 20 UNIT/1,000 ML BAG IV SCH ×2 (08:00→16:00)
[2021-12-05] MEDS: Oxycodone HCl/Acetaminophen 1 TAB TAB PO PRN ×3 (08:27→19:45)
--- NOTE | 2021-12-05 08:58 | PREOPHP ---
Date of Admission: 12/05/2021 History Of Present Illness: A 31-year-old, 2, para 1, at 37 weeks and 3 days possibly up to 37 weeks and 6 days. The patient reports that her bag of grove ruptured at about 5 a.m. She came t o the hospital. She was 5-6 on admission. She is now progressed to 8 cm to 8.5. She has a lip of c ervix, but will not let us try to reduce the cervix. Labs are pending. If we get the labs and anest hesia, then could do a spinal block with fentanyl. Right now, we will give the patient 1 mg of Stado l IV. Baby looks good. Vital signs are all stable. She does not know her strep status, but has bee n given a dose of penicillin. Family History: Noncontributory. Past Medical History: No past medical history of any significance. Allergies: NO ALLERGIES. Physical Examination: HEENT: Clear. Pupils equal, round, reactive to light and accommodation. Conjunctivae well perfused . No oral, lingual, or buccal lesions. Chest and Lungs: Clear. Heart: Without murmurs, thrills, heaves, or rubs. Breasts: Not examined. Abdomen: Term size. Extremities: Clear. Pelvic Exam: As stated. Assessment And Plan: The patient is approximately 8.5 to 9, 0 to +1 station, dia every minut e and half to 2 minutes firmly. Anticipate delivery relatively soon. LAVINIA/HUNTER Voice ID: [id number]
--- NOTE | 2021-12-05 09:34 | OP ---
Surgeon: Bill Rendon MD Procedure In Detail: Jaqueline Coffman is a 31-year-old, 2, para 1, 38 weeks gestation followe d by antepartum without complications. Rh positive, but strep status unknown. Rupture of membranes this morning at 5 a.m. Came to our institution, was in active labor, dia every 2 minutes, 5-6 cm on admission. During the labor, received Stadol 1 mg IV x1. Went rapidly to complete. Precipit ous delivery of an estimated 7-pound male infant, Apgars 8 or 9 at 1 minute. Very small first-degree laceration involving the right labia minora. A 2-0 chromic after local infiltration, 5 stitches. F irst-degree laceration Ian. Ferreira delivery of the placenta, which was inspected and noted to b e intact and normal. 300 cc or less blood loss. The patient tolerated all procedures well. Final Diagnoses: Term intrauterine at 38 weeks, spontaneous labor, vaginal delivery, preci pitous. LAVINIA/HUNTER Voice ID: [id number] Report ID: [id number]
[2021-12-05] MEDS ORDERED: ONDANSETRON 4 MG (ODT) TAB PO PRN ×2 (17:41)
[2021-12-05] MEDS: IBUPROFEN 600 MG TAB PO PRN ×2 (17:47→23:26)
[2021-12-05] MEDS ORDERED: ONDANSETRON 4 MG (ODT) TAB ONE (17:53)
[2021-12-05 19:19] LABS: Barbiturates NEGATIVE (NEGATIVE); Benzodiazepines NEGATIVE (NEGATIVE); Cocaine NEGATIVE (NEGATIVE); METHAMPHETAM NEGATIVE (NEGATIVE); Methadone NEGATIVE (NEGATIVE); Opiates NEGATIVE (NEGATIVE); Phencyclidine NEGATIVE (NEGATIVE); THC Cannibis POSITIVE (NEGATIVE)
[2021-12-05 23:46] LABS: RPR (Rapid Plasma Reagin) NON-REACT (NON-REACT)
[2021-12-06] MEDS: OXYTOCIN/LR 20 UNIT/1,000 ML BAG IV SCH
[2021-12-06] MEDS: Oxycodone HCl/Acetaminophen 1 TAB TAB PO PRN ×2 (03:42→08:27)
[2021-12-06 07:42] VITALS: BP 108/77; TEMP 96.7
--- NOTE | 2021-12-06 08:19 | DS ---
Hospital Course: A 31-year-old, 2, para 1, 38 weeks gestation, came in active rapidly advanc ing labor with spontaneous rupture of membranes, clear fluid. Subsequently, delivered an estimated 7 -pound male infant, Apgars 8 and 9 precipitously. Local anesthesia used for a very small first-degre e laceration on the right labia minora, 4 or 5 running locked stitches. Schultze delivery of the evan centa, inspected and noted to be intact and normal. Less than 300 cc blood loss. The patient was gi mg 5 million units of penicillin during the labor as she was not aware of her beta strep status, whi ch subsequently has been seemed to be negative. ; afebrile, ambulating, voiding. Lochia i s normal. She will be dismissed to report back to my office in 4-6 weeks for followup to report any temperature elevation of 100 degrees, greater or severe pain, heavy bleeding, or any other type of ab normalities. She will get her Tdap shot before she leaves the hospital. Offered flu shot through my office if she wishes. Full instructions given. Final Diagnoses: Term intrauterine at 38 weeks, spontaneous labor, precipitous vaginal del radha, penicillin prophylaxis, Tdap and flu shots offered. LAVINIA/HUNTER Voice ID: [id number] Report ID: [id number]
[2021-12-06] MEDS ORDERED: TDAP (DIPHTH,PERTUSS(ACELL),TET VAC) 0.5 ML VIAL IMVAC ONE ×2 (09:29→09:40)
== END 2021-12-06 10:35 | disposition home or self-care (01) | DRG 807 ==
LOC: L&D 05:47 → 2ND-WC 06:06
PROVIDERS: ADMIT Specialist; ATTEND Specialist
PROC: 10E0XZZ Delivery of Products of Conception, External Approach (ICD-10-PCS; principal; 2021-12-05)
PROC: 0HQ9XZZ Repair Perineum Skin, External Approach (ICD-10-PCS; 2021-12-05)
DX: O70.0 First degree perineal laceration during delivery (principal); Z37.0 Single live birth; O99.824 Streptococcus B carrier state complicating childbirth; O62.3 Precipitate labor; Z3A.38 38 weeks gestation of pregnancy
CPT/HCPCS: 36415; 80307; 85025; 86592; 86901; 87340; J0595; J2210; J7120; Q0162

== ENCOUNTER 2022-04-16 22:06 | Emergency (ER) | payer OTHER ==
--- OUTSIDE RECORDS SUMMARY | 2022-04-16 22:09 | XMS REPORT | Continuity of Care Document ---
:1990 Author Organization [facility] t Address [address] [place] [address] [address]. [address] [place] [address] Care Team Providers Name Role Phone Unavailable Unavailable Unavailable Problems This patient has no known problems. Allergies, Adverse Reactions, Alerts This patient has no known allergies or adverse reactions. Social History Social Habit Start Date Stop Date Quantity Comments Source Sex Assigned At [address] [facility] Medications This patient has no known medications. Procedures Procedure Date / Time Performed Performing Clinician Sour e HEPATITIS B SURFACE 2021-12-05 06:06:00 [facility] Plan of Care Planned Activity Planned Date Details Comments Source Future Scheduled 2021-12-[address] [facility] Test 00:00:00 (#1) [code = [facility] INFLUENZA VACCINE (#1)] Future Scheduled 2021-04-[address] [facility] Test 00:00:00 (12+) [code = [facility] DEPRESSION SCREENING (12+)] Future Scheduled [address] [facility] 00:00:00 malignant neoplasm of [facility] cervix (procedure) [code = 165439544] Future Scheduled 2008-02-19 DTAP/TDAP/TD VACCINES [facility] Test 00:00:00 (1 - Tdap) [code = Medical C enter DTAP/TDAP/TD VACCINES (1 - Tdap)] Future Scheduled 2007 HEPATITIS C SCREENING [facility] Test 00:00:00 [code = HEPATITIS C Medical Center SCREENING] Future Scheduled [address] [facility] Test 00:00:00 [facility] r Screening (12+) [code = Tobacco Cessation Counseling and Screening (12+)] Future Scheduled 1989 COVID-19 VACCINE (#1) [facility] Test 00:00:00 [code = COVID-[address] VACCINE (#1)] Encounters Start End Encounter Admission Attending Care Care Encounter Source Date/Time Date/Time Type Type Clinicians Facility Department ID 2021-12-05 2021-12-05 Lab [facility] [id number] [facility] 00:00:00 00:00:00 [facility] Results Test Description Test Time Test Comments Results Result Comments Source Hepatitis B surface antigen 2021-12-05 16:57:01 Test Item Value Reference Range Interpretation Comme nts Hepatitis B surface antigen (test Nonreactive Nonreactive code = 5195-3) ALVERTO (test code = ALVERTO) Specimen is considered negative for HBsAg. Lab Interpretation (test code = Normal 03426-9) [facility] [id number] 16:57:01 Test Item Value Reference Range Interpretation Comments HEPATITIS B SURFACE ANTIGEN (2) Nonreactive Nonreactive (BEAKER) (test code = 2585) Specimen is considered negative for HBsAg.
[2022-04-16] MEDS ORDERED: NA CHLORIDE 0.9% 1,000 ML ONE (23:03)
[2022-04-16 23:16] LABS: Urine Blood Negative (Negative); Urine Glucose Negative (Negative); Urine Protein Negative (Negative); Urine pH 5.5 (5.0-7.0)
[2022-04-16 23:18] LABS: Absolute Lymphocytes (CBC) 1.9 K/uL (0.7-4.9); Hematocrit 37.9 % (36.0-45.0); Lymphocytes % 24.3 % (15.3-44.8); MCV 76.1 fL (80-100); MPV 8.7 fL (7.6-11.3); RBC Red Blood Cell Count 4.98 M/uL (3.86-4.86)
[2022-04-16 23:30] LABS: Potassium 3.7 mmol/L (3.5-5.1)
[2022-04-17] MEDS ORDERED: SMZ./TMP. 800/160 MG TABLET ONE (00:33)
[2022-04-17] MEDS ORDERED: CLINDAMYCIN 600MG/D5W 50 ML IV ONE (00:33)
--- NOTE | 2022-04-17 00:52 | EDPHYS ---
Physician Documentation [facility] Name: Jaqueline Coffman Age: 32 yrs Sex: Female : 1990 Arrival Date: 04/16/2022 Time: 22:11 Bed 16 Private MD: ED Physician Kayy López HPI: 04/16 23:00 This 32 yrs old Female presents to ER via Ambulatory with complaints of Leg Swelling, cp Arm Swelling. 23:00 The patient or guardian complains of swelling, tenderness, erythema. The complaints cp affect the dorsal aspect of right forearm. Context: resulted from history of IV drug use. 23:00 Onset: The symptoms/episode began/occurred 2 day(s) ago. The patient presents with cp swelling, tenderness, erythema. The complaints affect the lateral aspect of left calf. Context: recent tattoo 5 days ago. Associated signs and symptoms: Pertinent positives: swelling, warmth, Pertinent negatives fever, numbness, weakness. Treatment prior to arrival includes: no previous treatment. 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 ROS: 23:05 Constitutional: Negative for body aches, chills, fever, poor PO intake. cp 23:05 Eyes: Negative for injury, pain, redness, and discharge. cp 23:05 ENT: Negative for drainage from ear(s), ear pain, sore throat, difficulty swallowing, difficulty handling secretions. 23:05 Cardiovascular: Negative for chest pain, palpitations. 23:05 Respiratory: Negative for cough, shortness of breath, wheezing. 23:05 Abdomen/GI: Negative for abdominal pain, nausea, vomiting, and diarrhea. 23:05 : Negative for urinary symptoms. 23:05 Neuro: Negative for altered mental status, dizziness, headache, numbness, syncope, weakness. 23:05 All other systems are negative. Exam: 23:10 Constitutional: The patient appears in no acute distress, alert, awake, comfortable, cp non-diaphoretic, non-toxic, well developed, well nourished. 23:10 Head/Face: Normocephalic, atraumatic. cp 23:10 Eyes: Periorbital structures: appear normal, Conjunctiva: normal, no exudate, no injection, Sclera: no appreciated abnormality, Lids and lashes: appear normal, bilaterally. 23:10 ENT: External ear(s): are unremarkable, Nose: is normal, Mouth: Lips: moist, Oral mucosa: moist, Posterior pharynx: Airway: no evidence of obstruction, patent. 23:10 Chest/axilla: Inspection: normal. 23:10 Cardiovascular: Rate: tachycardic, Rhythm: regular, Edema: is not appreciated, JVD: is not appreciated. 23:10 Respiratory: the patient does not display signs of respiratory distress, Respirations: normal, Breath sounds: are clear throughout, no decreased breath sounds, no stridor, no wheezing. 23:10 Abdomen/GI: Inspection: abdomen appears normal, Bowel sounds: active, all quadrants, Palpation: abdomen is soft and non-tender, in all quadrants. 23:10 Skin: cellulitis, that is mild, irregular, on the right forearm, left lower leg. Right forearm with multiple needle jackson, tender and swollen area along distal ulna side but no abscess noted. Vital Signs: 22:14 BP 130 / 78; Pulse 102; Resp 20; Temp 98.6; Pulse Ox 100% ; Weight 62.6 kg; Height 5 jj7 ft. 3 in. (160.02 cm); Pain 5/10; 23:23 BP 132 / 88; Pulse 94; Resp 17; Temp 98.5; Pulse Ox 100% ; Pain 0/10; ke1 04/17 00:54 BP 108 / 54; Pulse 91; Resp 19; Temp 98.4; Pulse Ox 100% ; Pain 0/10; ke1 04/16 22:14 Body Mass Index 24.45 (62.60 kg, 160.02 cm) jj7 MDM: 04/16 22:38 Patient medically screened. cp 04/17 00:52 Data reviewed: vital signs, nurses notes, lab test result(s), radiologic studies, cp ultrasound. 00:52 Differential diagnosis: cellulitis, sepsis, abscess, DVT. Counseling: I had a detailed cp discussion with the patient and/or guardian regarding: the historical points, exam findings, and any diagnostic results supporting the discharge/admit diagnosis, lab results, radiology results, to return to the emergency department if symptoms worsen or persist or if there are any questions or concerns that arise at home. Response to treatment: the patient's symptoms have mildly improved after treatment, and as a result, I will discharge patient. 00:52 ED course: VSS. Labs reviewed. Radiology studies reviewed and no DVT and no retained cp needle. Will start patient on oral antibiotics with instructions to return for reevaluation worsening symptoms. 04/16 22:53 Order name: CBC with Diff; Complete Time: 00:23 cp 04/17 00:23 Interpretation: Normal except: RBC 4.98; MCV 76.1; MCH 24.5; RDW 17.9; EOSINOPHIL % 4.8.cp 04/16 22:53 Order name: BMP; Complete Time: 00:23 cp 04/17 00:55 Interpretation: Normal except: NA 135. cp 04/16 22:53 Order name: Extremity Venous Uni Ltd US cp 04/16 23:17 Order name: Urine Dipstick-Ancillary; Complete Time: 00:23 EDMS 04/17 00:55 Interpretation: Normal except: UESTR 1+. cp 04/16 23:22 Order name: Urine --Ancillary (enter results); Complete Time: 00:54 wm 04/17 00:54 Interpretation: Reviewed. cp 04/16 22:53 Order name: XRAY Forearm RIGHT cp 04/16 22:53 Order name: IV; Complete Time: 23:17 cp 04/16 22:53 Order name: Urine Dipstick-Ancillary (obtain specimen); Complete Time: 23:17 cp 04/16 22:53 Order name: Urine Test (obtain specimen); Complete Time: 23:17 cp 04/16 22:59 Order name: UPPER EXTREMITY VENOUS UNILATE EDMS Administered Medications: 04/16 23:17 Drug: NS 0.9% 1000 ml Route: IV; Rate: 1 bolus; Site: left antecubital; ke1 04/17 00:35 Drug: Bactrim (trimethoprim-sulfamethoxazole) (160 mg-800 mg (DS) 1 tablet Route: PO; ke1 01:06 Follow up: Response: No adverse reaction ke1 00:36 Drug: Clindamycin 600 mg Route: IVPB; Infused Over: 30 mins; Site: left antecubital; ke1 01:06 Follow up: IV Status: Completed infusion ke1 Disposition Summary: 04/17/22 00:52 Discharge Ordered Location: Home cp Problem: new cp Symptoms: have improved cp Condition: Stable cp Diagnosis - Cellulitis of right upper limb cp - Cellulitis of left lower limb cp Followup: cp - With: Private Physician - When: 48 Hours - Reason: Worsening of condition Discharge Instructions: - Discharge Summary Sheet cp - Cellulitis, Adult cp Forms: - Medication Reconciliation Form cp - Thank You Letter cp - Antibiotic Education cp - Prescription Opioid Use cp Prescriptions: - Clindamycin HCl 300 mg Oral Capsule - take 1 capsule by ORAL route every 6 hours for 10 days; 40 capsule; Refills: 0, cp Product Selection Permitted - Ibuprofen 800 mg Oral Tablet - take 1 tablet by ORAL route every 8 hours As needed take with food; 30 tablet; cp Refills: 0, Product Selection Permitted - Bactrim DS 800-160 mg Oral Tablet - take 1 tablet by ORAL route every 12 hours for 10 days; 20 tablet; Refills: 0, cp Product Selection Permitted Addendum: 04/18/2022 21:00 STAFF ATTESTATION STATEMENT: I was immediately available onsite in the emergency s d2 department for consultation in the care of this patient. I did not see or examine this patient. Kayy López MD. Signatures: Dispatcher [employer] EDMS Maurisio Zuniga PA PA cp Ebrottie, Kouassi, RN RN ke1 Kayy López MD MD sd2 Meryl Espinal RN RN jj7 Corrections: (The following items were deleted from the chart) 04/16 22:59 22:54 Extremity Venous Uni Ltd+[email or web address].RAD.BRZ ordered. EDMS EDMS
--- NOTE | 2022-04-17 00:52 | ER ---
Nurse's Notes [facility] Name: Jaqueline Coffman Age: 32 yrs Sex: Female : 1990 Arrival Date: 04/16/2022 Time: 22:11 Bed 16 Private MD: Diagnosis: Cellulitis of right upper limb;Cellulitis of left lower limb Presentation: 04/16 22:14 Chief complaint: Patient states: THINKS SHE CAUGHT A STAPH INFECTION ON HER LEFT LEG jj7 AND RIGHT ARM FROM A DIRTY TATTOO NEEDLE. REDNESS AND SWELLING X5 DAYS. Coronavirus screen: At this time, the client does not indicate any symptoms associated with coronavirus-19. Ebola Screen: No symptoms or risks identified at this time. Initial Sepsis Screen: Does the patient meet any 2 criteria? HR > 90 bpm. No. Patient's initial sepsis screen is negative. Does the patient have a suspected source of infection? No. Patient's initial sepsis screen is negative. Risk Assessment: Do you want to hurt yourself or someone else? Patient reports no desire to harm self or others. Onset of symptoms was April 11, 2022. 22:14 Method Of Arrival: Ambulatory [facility] 22:14 Acuity: ROSALINDA 4 jj7 Triage Assessment: 22:19 General: Appears in no apparent distress. comfortable, Behavior is calm, cooperative, jj7 appropriate for age. Pain: Complains of pain in dorsal aspect of right forearm. 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 Screenin:35 [facility] ED Fall Risk Assessment (Adult) History of falling in the last 3 months, ke1 including since admission No falls in past 3 months (0 pts) Confusion or Disorientation No (0 pts) Intoxicated or Sedated No (0 pts) Impaired Gait No (0 pts) Mobility Assist Device Used No (0 pt) Altered Elimination No (0 pt) Score/Fall Risk Level 0 - 2 = Low Risk. Abuse screen: Denies threats or abuse. Nutritional screening: No deficits noted. Tuberculosis screening: No symptoms or risk factors identified. Vital Signs: 22:14 BP 130 / 78; Pulse 102; Resp 20; Temp 98.6; Pulse Ox 100% ; Weight 62.6 kg; Height 5 [facility] ft. 3 in. (160.02 cm); Pain 5/10; 23:23 BP 132 / 88; Pulse 94; Resp 17; Temp 98.5; Pulse Ox 100% ; Pain 0/10; ke1 04/17 00:54 BP 108 / 54; Pulse 91; Resp 19; Temp 98.4; Pulse Ox 100% ; Pain 0/10; ke1 04/16 22:14 Body Mass Index 24.45 (62.60 kg, 160.02 cm) [facility] ED Course: 04/16 22:11 Patient arrived in ED. 2 22:14 Maurisio Zuniga PA is PHCP. cp 22:14 Kayy López MD is Attending Physician. cp 22:19 Triage completed. [facility] 22:19 Arm band placed on left wrist. [facility] 22:24 Jeremy Porter, RN is Primary Nurse. ke1 22:35 Bed in low position. Call light in reach. ke1 22:35 No provider procedures requiring assistance completed. ke1 23:16 Inserted saline lock: 20 gauge in left antecubital area, using aseptic technique. ke1 23:17 CBC with Diff Sent. ke1 23:17 BMP Sent. ke1 23:21 XRAY Forearm RIGHT In Process Unspecified. EDMS 23:52 Extremity Venous Uni Ltd US In Process Unspecified. EDMS 23:52 UPPER EXTREMITY VENOUS UNILATE In Process Unspecified. EDMS 04/17 01:06 IV discontinued. ke1 Administered Medications: 04/16 23:17 Drug: NS 0.9% 1000 ml Route: IV; Rate: 1 bolus; Site: left antecubital; ke1 04/17 00:35 Drug: Bactrim (trimethoprim-sulfamethoxazole) (160 mg-800 mg (DS) 1 tablet Route: PO; ke1 01:06 Follow up: Response: No adverse reaction ke1 00:36 Drug: Clindamycin 600 mg Route: IVPB; Infused Over: 30 mins; Site: left antecubital; ke1 01:06 Follow up: IV Status: Completed infusion ke1 Medication: 00:55 VIS not applicable for this client. ke1 Outcome: 00:52 Discharge ordered by . patrice 01:06 Discharged to home ambulatory. ke1 01:06 Condition: good 01:06 Discharge instructions given to patient. 01:06 Patient left the ED. ke1 Signatures: Dispatcher [employer] EDMS Maurisio Zuniga PA PA cp Alexander, Jessica ja2 Ebrottie, Kouassi, RN RN ke1 Meryl Espinal RN RN jj7
[2022-04-17 01:16] VITALS: O2SAT 100
[2022-04-17 01:27] VITALS: BP 108/54; TEMP 98.4
--- NOTE | 2022-04-17 11:47 | RAD REPORT ---
EXAM DESCRIPTION: Two views of the right forearm CLINICAL HISTORY: PAIN. COMPARISON: None. TECHNIQUE: Two views of the right forearm: AP and lateral radiographs. FINDINGS: No acute osseous abnormality is identified. Alignment is maintained. No radiopaque foreign object in the soft tissues. IMPRESSION: No acute osseous abnormality identified. Electronically signed by: Wendy Welch MD 04/16/2022 11:33 PM RULES EXAMINER Due to temporary technical issues with the PACS/Fluency reporting system, reports are being signed by the in house radiologists without review as a courtesy to insure prompt reporting. The interpreting radiologist is fully responsible for the content of the report.
--- NOTE | 2022-04-17 11:50 | RAD REPORT ---
EXAM DESCRIPTION: Extremity Venous Uni Ltd CLINICAL HISTORY: 32 years Female SWELLING COMPARISON: None TECHNIQUE: Spectral analysis and color/grayscale sonographic images of the left leg were obtained ut ilizing a high-frequency linear array transducer supplemented with color Doppler, compression and aug mentation techniques. FINDINGS: Common femoral: normal Greater saphenous: normal Superficial femoral: normal Popliteal: normal Calf Veins: normal IMPRESSION: 1. No sonographic evidence for left lower extremity deep venous thrombosis. Electronically signed by: Brianna Bustamante MD 04/17/2022 12:08 AM EDGE STITCHER Due to temporary technical issues with the PACS/Fluency reporting system, reports are being signed by the in house radiologists without review as a courtesy to insure prompt reporting. The interpreting radiologist is fully responsible for the content of the report.
--- NOTE | 2022-04-17 11:51 | RAD REPORT ---
EXAM DESCRIPTION: UPPER EXTREMITY VENOUS UNILATE CLINICAL HISTORY: 32 years Female Pain UPPER EXTREMITY VENOUS UNILATE COMPARISON: None TECHNIQUE: Spectral analysis and color/grayscale sonographic images of the right upper extremity was obtained utilizing a high-frequency linear array transducer supplemented with color Doppler, crystal kelly and augmentation techniques. FINDINGS: Internal jugular: Patent Subclavian: Patent Axillary: Patent Brachial: Patent. Basilic: Patent Radial: Patent Ulnar: Patent IMPRESSION: 1. No sonographic evidence for deep venous thrombosis in the right upper extremity. Electronically signed by: Brianna Bustamante MD 04/17/2022 12:10 AM TECHNOLOGY SOLUTIONS ARCHITECT Due to temporary technical issues with the PACS/Fluency reporting system, reports are being signed by the in house radiologists without review as a courtesy to insure prompt reporting. The interpreting radiologist is fully responsible for the content of the report.
== END 2022-04-17 01:06 | disposition home or self-care (01) ==
LOC: ER 22:06
DX: L03.113 Cellulitis of right upper limb (principal); L03.116 Cellulitis of left lower limb; F17.210 Nicotine dependence, cigarettes, uncomplicated
CPT/HCPCS: 85025; 80048; 36415; 81025; 81003; 73090; 93971 ×2; J7030

== ENCOUNTER → 2023-07-15 | Emergency (ER) | payer OTHER ==
[~2023-07-15] MED LIST: CEFTRIAXONE 2000 MG/VIAL ONE; CEPHALEXIN 250 MG CAP ONE; KETOROLAC 30 MG/ML INJ ONE; MORPHINE 2 MG/ML SYR ONE; NA CHLORIDE 0.9% 100 ML ONE; NA CHLORIDE 0.9% 2,000 ML ONE; ONDANSETRON 4 MG/2 ML VIAL ONE; SMZ./TMP. 800/160 MG TABLET ONE
[2023-07-15 02:36] LABS: Absolute Eosinophils 0.3 K/uL (0-0.5); Absolute Lymphocytes (CBC) 1.7 K/uL (0.7-4.9); Absolute Monocytes 0.6 K/uL (0.1-1.3); Absolute Neutrophil 5.4 K/uL (1.8-8.0); Basophils % 0.6 % (0-1.3); Eosinophils % 3.2 % (0-4.4); Hematocrit 31.1 % (36.0-45.0); Hemoglobin 10.3 g/dL (12.0-15.0); Lymphocytes % 21.3 % (15.3-44.8); MCH 25.8 pg (27.0-35.0); MCHC 33.1 g/dL (32.0-36.0); MCV 78.1 fL (80-100); MPV 8.8 fL (7.6-11.3); Neutrophils % 67.9 % (41.7-73.7); Nucleated Red Blood Cells % 0.1 % (0-0); Platelets 299 thou/uL (152-406); RBC Red Blood Cell Count 3.98 M/uL (3.86-4.86); Red Cell Distribution Width 14.9 % (12.1-15.2)
[2023-07-15 02:47] LABS: Albumin 3.3 g/dL (3.4-5.0); Albumin/Globulin Ratio 0.7 (1.1-1.8); Anion Gap 4.6 mEq/L (5.0-15.0); Bilirubin Total 0.2 mg/dL (0.2-1.0); Globulin 4.6 g/dL (2.3-3.5); Potassium 3.6 mEq/L (3.5-5.1); Protein, Total 7.9 g/dL (6.4-8.2)
--- NOTE | 2023-07-15 03:04 | ER ---
Nurse's Notes [facility] Name: Jaqueline Coffman Age: 33 yrs Sex: Female : 1990 Arrival Date: 07/15/2023 Time: 00:54 Bed 19 Private MD: Diagnosis: Dental caries, unspecified;Dental root caries;Abuse of other non-psychoactive substances-IVDA, METHAMPPHETAMINES;Cellulitis and acute lymphangitis of other parts of limb-LEFT LE, BILATERAL KNEES, SKIN;Anemia, unspecified;Abnormal level of enzymes in specimens from digestive organs and abdominal cavity-elevated Transaminases ;UTI/ Urinary tract infection, site not specified;Adverse effect of amphetamines;Adverse effect of amphetamines, initial encounter Presentation: 07/14 01:00 Chief complaint: Patient states: TOOTHACHE X 1 WEEK. NOW BILAT LOW EXTREMITY SWELLING jj7 AND REDNESS STARTED YESTERDAY. Coronavirus screen: At this time, the client does not indicate any symptoms associated with coronavirus-19. Ebola Screen: No symptoms or risks identified at this time. Initial Sepsis Screen: Does the patient meet any 2 criteria? No. Patient's initial sepsis screen is negative. Does the patient have a suspected source of infection? No. Patient's initial sepsis screen is negative. Risk Assessment: Do you want to hurt yourself or someone else? Patient reports no desire to harm self or others. 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 Onset of symptoms was July 13, 2023. 01:00 Method Of Arrival: Ambulatory j7 01:00 Acuity: ROSALINDA 3 jj7 Triage Assessment: 01:06 General: Appears in no apparent distress. uncomfortable, Behavior is calm, cooperative, jj7 appropriate for age. Pain: Complains of pain in right leg, left leg and right buccal mucosa Pain currently is 8 out of 10 on a pain scale. EENT: Reports pain in right buccal mucosa. 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 Flu vaccine is not up to date. - Social history:: Smoking status: Patient reports the use of cigarette tobacco products, smokes one-half pack cigarettes per day, Patient uses street drugs, Methamphetamine (Meth) Patient/guardian denies using. - Family history:: not pertinent. Screenin:[address] [facility] ED Fall Risk Assessment (Adult) History of falling in the last 3 months, jj7 including since admission No falls in past 3 months (0 pts) Confusion or Disorientation No (0 pts) Intoxicated or Sedated No (0 pts) Impaired Gait No (0 pts) Mobility Assist Device Used No (0 pt) Altered Elimination No (0 pt) Score/Fall Risk Level 0 - 2 = Low Risk Oriented to surroundings, Maintained a safe environment, Educated pt \T\ family on fall prevention, incl call for assistance when getting out of bed. Abuse screen: Denies threats or abuse. Nutritional screening: No deficits noted. Tuberculosis screening: No symptoms or risk factors identified. Assessment: 01:15 General: Appears in no apparent distress. uncomfortable, Behavior is calm, cooperative. jw7 01:15 Pain: Complains of pain in left leg and right leg and right buccal mucosa Pain does not jw7 radiate. Pain currently is 8 out of 10 on a pain scale. Quality of pain is described as throbbing, Pain began gradually, Is continuous, Alleviated by medications. Neuro: Level of Consciousness is awake, alert, obeys commands, Oriented to person, place, time, situation. Cardiovascular: Heart tones S1 S2 present Capillary refill < 3 seconds Clubbing of nail beds is absent JVD is absent Patient's skin is warm and dry. Respiratory: Airway is patent Trachea midline Respiratory effort is even, unlabored, Respiratory pattern is regular, symmetrical, Breath sounds are clear bilaterally. GI: Abdomen is flat, non-distended, Bowel sounds present X 4 quads. Abd is soft and non tender X 4 quads. : No deficits noted. No signs and/or symptoms were reported regarding the genitourinary system. EENT: No deficits noted. No signs and/or symptoms were reported regarding the EENT system. Derm: Skin is intact, is healthy with good turgor, Skin is dry, Skin is normal, Skin temperature is warm Reports redness to IVY Lower Extremities. Musculoskeletal: Circulation, motion, and sensation intact. Range of motion: intact in all extremities. 02:24 Reassessment: Patient appears in no apparent distress at this time. No changes from jw7 previously documented assessment. Patient and/or family updated on plan of care and expected duration. Pain level reassessed. Patient is alert, oriented x 3, equal unlabored respirations, skin warm/dry/pink. 03:30 Reassessment: Patient appears in no apparent distress at this time. Patient and/or pf1 family updated on plan of care and expected duration. Pain level reassessed. Patient is alert, oriented x 3, equal unlabored respirations, skin warm/dry/pink. Patient states feeling better. Patient states symptoms have improved. 03:32 Reassessment: Patient pending discharge, after urine results. pf1 Vital Signs: 01:00 BP 106 / 72; Pulse 88; Resp 17; Temp 97.2; Pulse Ox 100% ; Weight 63.5 kg; Height 5 ft. jj7 3 in. ; Pain 7/10; 02:24 BP 100 / 69; Pulse 67; Resp 18 S; Pulse Ox 100% on R/A; jw7 03:30 BP 111 / 72; Pulse 65; Resp 16; Temp 98; Pulse Ox 100% ; Pain 0/10; pf1 01:00 Body Mass Index 24.80 (63.50 kg, 160.02 cm) jj7 01:00 Pain Scale: Adult j7 03:30 Pain Scale: Adult pf1 [place] Coma Score: 01:31 Eye Response: spontaneous(4). Motor Response: obeys commands(6). Verbal Response: jamila oriented(5). Total: 15. ED Course: 00:57 Patient arrived in ED. im 01:05 Triage completed. jj7 01:06 Arm band placed on right wrist. jj7 01:07 Patient has correct armband on for positive identification. Adult w/ patient. jj7 01:10 Maurisio Taylor MD is Attending Physician. jamila 01:30 Door closed. Noise minimized. Lights dimmed. Warm blanket given. pf1 01:34 Naomi Godfrey RN is Primary Nurse. jw7 02:00 Missed attempt(s): 22 gauge Bleeding controlled, band aid applied, catheter tip intact. oe 02:03 First set of blood cultures drawn by me. oe 02:05 Inserted saline lock: 20 gauge in right antecubital area, using aseptic technique. oe Blood collected. 02:19 CBC with Diff Sent. oe 02:19 Comprehensive Metabolic Panel Sent. oe 02:20 Second set of blood cultures drawn by me. oe 02:23 Bed in low position. Side rails up X2. oe 02:34 Chest Pa And Lat (2 Views) XRAY In Process Unspecified. EDMS 03:17 Tanner Leos MD is Referral Physician. jamila 03:25 Urinalysis w/ reflexes Sent. pf1 03:25 PREGU Sent. pf1 04:17 Provided Education on: prescriptions. pf1 04:17 No provider procedures requiring assistance completed. pf1 04:17 IV discontinued, intact, bleeding controlled, No redness/swelling at site. Pressure pf1 dressing applied. Administered Medications: 02:19 Drug: Cephalexin PO 500 mg PO once Route: PO; jw7 03:00 Follow up: Response: No adverse reaction; Marked relief of symptoms pf1 02:20 Drug: NS 0.9% IV 1000 ml IV at 1 bolus Per protocol; 1000 mL bolus Route: IV; Rate: 1 jw7 bolus; Site: right antecubital; 04:00 Follow up: Response: No adverse reaction; Marked relief of symptoms; IV Status: pf1 Completed infusion; IV Intake: 1000ml 02:20 Drug: NS 0.9% IV 1000 ml IV at 1 bolus Per protocol; 1000 mL bolus Route: IV; Rate: 1 jw7 bolus; Site: right antecubital; 03:20 Follow up: Response: No adverse reaction; Marked relief of symptoms; IV Status: pf1 Completed infusion; IV Intake: 1000ml 02:20 Drug: Rocephin IV 2 grams IV at per protocol once; Given slow IV push per Segment jw7 instructions Route: IV; Rate: per protocol; Site: right antecubital; 02:40 Follow up: Response: No adverse reaction; Marked relief of symptoms; IV Status: pf1 Completed infusion; IV Intake: 50ml 02:20 Drug: morphine IVP or IV 2 mg IVP once over 4 mins Route: IVP; Infused Over: 4 mins; jw7 Site: right antecubital; 03:00 Follow up: Response: No adverse reaction; Marked relief of symptoms; Pain is decreased; pf1 RASS: Alert and Calm (0) 02:20 Drug: Ondansetron IVP 4 mg IVP once; over 2 minutes Route: IVP; Site: right antecubital;jw7 03:00 Follow up: Response: No adverse reaction; Marked relief of symptoms; Nausea is decreasedpf1 02:20 Drug: Trimethoprim-Sulfamethoxazole PO (160 mg-800 mg (DS) 1 tablet PO once Route: PO; jw7 03:00 Follow up: Response: No adverse reaction; Marked relief of symptoms pf1 03:00 Drug: morphine IVP or IV 2 mg IVP once over 4 mins Route: IVP; Infused Over: 4 mins; jw7 Site: right antecubital; 04:00 Follow up: Response: No adverse reaction; Marked relief of symptoms; Pain is decreased; pf1 RASS: Alert and Calm (0) 04:00 Drug: Ketorolac IVP 30 mg IVP once; IF UPT IS NEGATIVE Route: IVP; Site: right pf1 antecubital; 04:17 Follow up: Response: No adverse reaction; Marked relief of symptoms; Pain is decreased pf1 Medication: 01:35 VIS not applicable for this client. jw7 Intake: 02:40 IV: 50ml; Total: 50ml. pf1 03:20 IV: 1000ml; Total: 1050ml. pf1 04:00 IV: 1000ml; Total: 2050ml. pf1 Outcome: 03:02 Discharge ordered by . jamila 04:17 Patient left the ED. pf1 04:17 Discharged to home ambulatory, pf1 04:17 Condition: improved 04:17 Discharge instructions given to patient, Instructed on discharge instructions, follow up and referral plans. Demonstrated understanding of instructions, follow-up care, medications, Prescriptions given X 3, Signatures: Dispatcher [employer] EDMaurisio Mayorga MD MD cha Espinosa, Orlando oe Waits, Jodi RN RN jw7 Meryl Espinal RN RN jjLetha Medina RN RN pf1 Leta Salgado
--- NOTE | 2023-07-15 03:04 | EDPHYS ---
Physician Documentation [facility] Name: Jaqueline Coffman Age: 33 yrs Sex: Female : 1990 Arrival Date: 07/15/2023 Time: 00:54 Bed 19 Private MD: TRAN Physician Maurisio Taylor HPI: 07/14 01:28 This 33 yrs old Female presents to ER via Ambulatory with complaints of [facility] Toothache, Leg Swelling, Leg Pain. 01:28 The patient presents with broken tooth/teeth, pain. The problem is located in the right [facility] buccal mucosa. Onset: The symptoms/episode began/occurred 3 day(s) ago. Duration: The symptoms are continuous, and are steadily getting worse. Modifying factors: The symptoms are alleviated by nothing, the symptoms are aggravated by chewing, food. Associated signs and symptoms: The patient has no apparent associated signs or symptoms. Severity of symptoms: At their worst the symptoms were moderate, in the emergency department the symptoms are unchanged. It is unknown whether or not the patient has had similar symptoms in the past. APPLICATION SPECIALIST: 01:06 LMP 06/29/2023, unknown jj7 Historical: - Allergies: 01:06 No Known Allergies; jj7 - PMHx: 01:06 None; jj7 - PSHx: 01:06 None; jj7 - Immunization history:: Client reports having NOT received the Covid vaccine. Flu vaccine is not up to date. - Social history:: Smoking status: Patient reports the use of cigarette tobacco products, smokes one-half pack cigarettes per day, Patient uses street drugs, Methamphetamine (Meth) Patient/guardian denies using. - Family history:: not pertinent. ROS: 01:28 Constitutional: Negative for fever, chills, and weight loss, Eyes: Negative for injury, jamila pain, redness, and discharge, Neck: Negative for injury, pain, and swelling, Cardiovascular: Negative for chest pain, palpitations, and edema, Respiratory: Negative for shortness of breath, cough, wheezing, and pleuritic chest pain, Abdomen/GI: Negative for abdominal pain, nausea, vomiting, diarrhea, and constipation, Back: Negative for injury and pain, : Negative for injury, bleeding, discharge, and swelling, Neuro: Negative for headache, weakness, numbness, tingling, and seizure, Psych: Negative for depression, anxiety, suicide ideation, homicidal ideation, and hallucinations, Allergy/Immunology: Negative for hives, rash, and allergies, Endocrine: Negative for neck swelling, polydipsia, polyuria, polyphagia, and marked weight changes, Hematologic/Lymphatic: Negative for swollen nodes, abnormal bleeding, and unusual bruising, :28 ENT: Positive for Teeth pain 01:28 MS/extremity: Positive for erythema, pain, of the right leg and left leg, Exam: :28 Constitutional: This is a well developed, well nourished patient who is awake, alert, jamila and in no acute distress. Head/Face: Normocephalic, atraumatic. Eyes: Pupils equal round and reactive to light, extra-ocular motions intact. Lids and lashes normal. Conjunctiva and sclera are non-icteric and not injected. Cornea within normal limits. Periorbital areas with no swelling, redness, or edema. Neck: Trachea midline, no thyromegaly or masses palpated, and no cervical lymphadenopathy. Supple, full range of motion without nuchal rigidity, or vertebral point tenderness. No Meningismus. Chest/axilla: Normal chest wall appearance and motion. Nontender with no deformity. No lesions are appreciated. Cardiovascular: Regular rate and rhythm with a normal S1 and S2. No gallops, murmurs, or rubs. Normal PMI, no JVD. No pulse deficits. Respiratory: Lungs have equal breath sounds bilaterally, clear to auscultation and percussion. No rales, rhonchi or wheezes noted. No increased work of breathing, no retractions or nasal flaring. Abdomen/GI: Soft, non-tender, with normal bowel sounds. No distension or tympany. No guarding or rebound. No evidence of tenderness throughout. Back: No spinal tenderness. No costovertebral tenderness. Full range of motion. Neuro: Awake and alert, GCS 15, oriented to person, place, time, and situation. Cranial nerves II-XII grossly intact. Motor strength 5/5 in all extremities. Sensory grossly intact. Cerebellar exam normal. Normal gait. Psych: Awake, alert, with orientation to person, place and time. Behavior, mood, and affect are within normal limits. :28 Musculoskeletal/extremity: DVT Exam: negative Homans' sign noted on exam, no appreciated bluish discoloration, pain, swelling, tenderness, erythema, increased warmth, that is mild, that is moderate, of the right leg and left leg, 01:28 Skin: abscess, not appreciated, cellulitis, that is moderate, on the right leg and left knee, induration, is not appreciated, located on the left arroyo, 01:31 Cardiovascular: Rate: normal, actual rate is 88 bpm, Rhythm: regular, Pulses: Pulses jamila are 4+ in bilateral radial, brachial, femoral, popliteal, posterior tibial and and dorsalis pedis arteries.. Heart sounds: normal, normal S1and S2, no S3 or S4, no murmur, no rub, no gallop, Edema: is not appreciated, JVD: is not appreciated, 02:42 Musculoskeletal/extremity: Circulation is intact in all extremities. Sensation intact. jamila Compartment Syndrome exam of affected extremity: is normal. Weight bearing: able to fully bear weight, Vital Signs: 01:00 BP 106 / 72; Pulse 88; Resp 17; Temp 97.2; Pulse Ox 100% ; Weight 63.5 kg; Height 5 ft. jj7 3 in. ; Pain 7/10; 02:24 BP 100 / 69; Pulse 67; Resp 18 S; Pulse Ox 100% on R/A; jw7 03:30 BP 111 / 72; Pulse 65; Resp 16; Temp 98; Pulse Ox 100% ; Pain 0/10; pf1 01:00 Body Mass Index 24.80 (63.50 kg, 160.02 cm) j7 01:00 Pain Scale: Adult j7 03:30 Pain Scale: Adult pf1 Júnior Coma Score: 01:31 Eye Response: spontaneous(4). Motor Response: obeys commands(6). Verbal Response: jamila oriented(5). Total: 15. MDM: 01:10 Patient medically screened. jamila 01:13 Patient medically screened. jamila 02:42 Differential diagnosis: dental caries, gingivitis, dental abscess, acute necrotizing jamila ulcerative gingivitis. Data reviewed: vital signs, nurses notes, lab test result(s). Consideration of Admission/Observation Escalation of care including admission/observation considered. I considered the following discharge prescriptions or medication management in the emergency department Medications were administered in the Emergency Department. See MAR. Independent interpretation of the following test(s) in the Emergency Department X-Ray: My interpretation is CXR . Test considered but Not performed: CT: NO CT CHEST , ABD , PELVIS. Historians other than the Patient: Spouse/Significant Other: SIG OTHER. 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 Counseling: I had a detailed discussion with the patient and/or guardian regarding the historical points, exam findings, and any diagnostic results supporting the discharge/admit diagnosis, lab results, radiology results, the need for outpatient follow up, a family practitioner. 07/14 01:25 Order name: CBC with Diff; Complete Time: 02:42 [facility] 07/14 01:25 Order name: Comprehensive Metabolic Panel; Complete Time: 03:01 [facility] 07/14 01:25 Order name: Blood Culture Adult (2) [facility] 07/14 01:25 Order name: Urinalysis w/ reflexes; Complete Time: 04:08 [facility] 07/14 01:25 Order name: PREGU; Complete Time: 04:08 [facility] 07/14 01:25 Order name: UDS; Complete Time: 04:08 [facility] 07/14 01:25 Order name: Lactate w/ 2H reflex if indic.; Complete Time: 02:45 [facility] 07/14 01:25 Order name: Chest Pa And Lat (2 Views) XRAY [facility] 07/14 03:02 Order name: Misc. Order: please get ua; Complete Time: 03:24 [facility] Administered Medications: 02:19 Drug: Cephalexin PO 500 mg PO once Route: PO; jw7 03:00 Follow up: Response: No adverse reaction; Marked relief of symptoms pf1 02:20 Drug: NS 0.9% IV 1000 ml IV at 1 bolus Per protocol; 1000 mL bolus Route: IV; Rate: 1 jw7 bolus; Site: right antecubital; 04:00 Follow up: Response: No adverse reaction; Marked relief of symptoms; IV Status: pf1 Completed infusion; IV Intake: 1000ml 02:20 Drug: NS 0.9% IV 1000 ml IV at 1 bolus Per protocol; 1000 mL bolus Route: IV; Rate: 1 jw7 bolus; Site: right antecubital; 03:20 Follow up: Response: No adverse reaction; Marked relief of symptoms; IV Status: pf1 Completed infusion; IV Intake: 1000ml 02:20 Drug: Rocephin IV 2 grams IV at per protocol once; Given slow IV push per [employer] jw7 instructions Route: IV; Rate: per protocol; Site: right antecubital; 02:40 Follow up: Response: No adverse reaction; Marked relief of symptoms; IV Status: pf1 Completed infusion; IV Intake: 50ml 02:20 Drug: morphine IVP or IV 2 mg IVP once over 4 mins Route: IVP; Infused Over: 4 mins; jw7 Site: right antecubital; 03:00 Follow up: Response: No adverse reaction; Marked relief of symptoms; Pain is decreased; pf1 RASS: Alert and Calm (0) 02:20 Drug: Ondansetron IVP 4 mg IVP once; over 2 minutes Route: IVP; Site: right antecubital;jw7 03:00 Follow up: Response: No adverse reaction; Marked relief of symptoms; Nausea is decreasedpf1 02:20 Drug: Trimethoprim-Sulfamethoxazole PO (160 mg-800 mg (DS) 1 tablet PO once Route: PO; jw7 03:00 Follow up: Response: No adverse reaction; Marked relief of symptoms pf1 03:00 Drug: morphine IVP or IV 2 mg IVP once over 4 mins Route: IVP; Infused Over: 4 mins; jw7 Site: right antecubital; 04:00 Follow up: Response: No adverse reaction; Marked relief of symptoms; Pain is decreased; pf1 RASS: Alert and Calm (0) 04:00 Drug: Ketorolac IVP 30 mg IVP once; IF UPT IS NEGATIVE Route: IVP; Site: right pf1 antecubital; 04:17 Follow up: Response: No adverse reaction; Marked relief of symptoms; Pain is decreased pf1 Disposition Summary: 07/15/23 03:02 Discharge Ordered Notes: Location: Home jamila Problem: new jamila Symptoms: have improved jamila Condition: Stable jamila Diagnosis - Dental caries, unspecified jamila - Dental root caries jamila - 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, METHAMPPHETAMINES jamila - Cellulitis and acute lymphangitis of other parts of limb - LEFT LE, BILATERAL jamila KNEES, SKIN - Anemia, unspecified jamila - Abnormal level of enzymes in specimens from digestive organs and abdominal cavity - jamila elevated Transaminases - UTI/ Urinary tract infection, site not specified jamila - Adverse effect of amphetamines jamila - Adverse effect of amphetamines, initial encounter jamila Followup: jamila - With: Private Physician - When: 2 - 3 days - Reason: Recheck today's complaints, Continuance of care, Re-evaluation by your physician Followup: [facility] - With: Tanner Leos MD - When: 2 - 3 days - Reason: Recheck today's complaints, Re-evaluation by your physician Discharge Instructions: - Discharge Summary Sheet [facility] - Finding Treatment for Addiction [facility] - Dental Caries, Adult [facility] - Dental Pain [facility] - Substance Use Disorder [facility] - Supporting Someone With an Addiction [facility] - Dental Pain, [id number] [facility] - Diet and Dental Disease [facility] - Dental Caries, Adult, [id number] [facility] - Substance Use Disorder and Mental Illness [facility] Forms: - Medication Reconciliation Form [facility] - Thank You Letter [facility] - Antibiotic Education [facility] - Prescription Opioid Use [facility] - Patient Portal Instructions [facility] - Leadership Thank You Letter [facility] Prescriptions: - Cephalexin 500 mg Oral Capsule - take 1 capsule ORAL route every 6 hours for 10 days; 40 capsule; Refills: 0, [facility] Product Selection Permitted - Ibuprofen 600 mg Oral Tablet - take 1 tablet ORAL route every 6 hours As needed take with food; 30 tablet; [facility] Refills: 0, Product Selection Permitted - Bactrim DS 800-160 mg Oral Tablet - take 1 tablet ORAL route every 12 hours for 10 days; 20 tablet; Refills: 0, [facility] Product Selection Permitted Signatures: Dispatcher [employer] Maurisio Olmstead MD MD cha Waits, Jodi RN RN jw7 Meryl Espinal RN RN jj7 Letha Barnes RN RN pf1
[2023-07-15 03:39] LABS: Specific Gravity 1.029 (1.005-1.030)
[2023-07-15 03:48] LABS: Specific Gravity 1.029 (1.005-1.030); Urine Bacteria 20-50 /HPF (<20); Urine Bilirubin NEGATIVE (Negative); Urine Blood Negative (Negative); Urine Clarity Extremely Turbid (Clear); Urine Color Yellow (Yellow); Urine Culture Reflex Order NOT NEEDED; Urine Glucose NEGATIVE (Negative); Urine Ketones NEGATIVE (Negative); Urine Microscopic Reflex YN ORDER UMIC; Urine Mucus 2+ /HPF (None Seen); Urine Nitrite NEGATIVE (Negative); Urine Protein 1+ (Negative); Urine RBC <5 /HPF (None Seen); Urine Urobilinogen Normal (Normal); Urine WBC <5 /HPF (<5); Urine pH 6.5 (5.0-7.0)
[2023-07-15 03:58] LABS: Barbiturates NEGATIVE (NEGATIVE); Benzodiazepines NEGATIVE (NEGATIVE); Cocaine NEGATIVE (NEGATIVE); METHAMPHETAM POSITIVE (NEGATIVE); Methadone NEGATIVE (NEGATIVE); Opiates POSITIVE (NEGATIVE); Phencyclidine NEGATIVE (NEGATIVE); THC Cannibis NEGATIVE (NEGATIVE)
[2023-07-15 04:23] VITALS: BP 100/69; TEMP 97.2; O2SAT 100
--- NOTE | 2023-07-15 17:24 | RAD REPORT ---
EXAM DESCRIPTION: RAD - Chest Pa And Lat (2 Views) - 07/15/2023 2:32 am CLINICAL HISTORY: COUGH TECHNIQUE: Frontal and lateral views of the chest. COMPARISON: No relevant prior studies available. FINDINGS: Lungs: Unremarkable. No consolidation. Pleural space: Unremarkable. No pneumothorax. Heart: Unremarkable. No cardiomegaly. Mediastinum: Unremarkable. Normal mediastinal contour. Bones/joints: Unremarkable. No acute fracture. IMPRESSION: No acute disease. Electronically signed by: Ahsley Childers MD 07/15/2023 02:50 AM CDT Due to temporary technical issues with the PACS/Fluency reporting system, reports are being signed by the in house radiologists without review as a courtesy to insure prompt reporting. The interpreting radiologist is fully responsible for the content of the report.
== END ==
LOC: ER 00:54
DX: K02.9 Dental caries, unspecified (principal); K02.7 Dental root caries; L03.116 Cellulitis of left lower limb; L03.115 Cellulitis of right lower limb; L03.126 Acute lymphangitis of left lower limb; F15.10 Other stimulant abuse, uncomplicated; D64.9 Anemia, unspecified; N39.0 Urinary tract infection, site not specified; R74.01 Elevation of levels of liver transaminase levels; T43.625A Adverse effect of amphetamines, initial encounter; F17.210 Nicotine dependence, cigarettes, uncomplicated; Z28.310 Unvaccinated for COVID-19
CPT/HCPCS: 87040 ×2; 85025; 81001; 36415; 81025; 83605; 80053; 80307; 71046; J2270 ×2; J2405; J0696; J7030

== ENCOUNTER → 2023-07-20 | Emergency (ER) | payer OTHER ==
[2023-07-20 08:29] LABS: Absolute Eosinophils 0.3 K/uL (0-0.5); Absolute Lymphocytes (CBC) 2.3 K/uL (0.7-4.9); Absolute Monocytes 0.7 K/uL (0.1-1.3); Absolute Neutrophil 3.5 K/uL (1.8-8.0); Basophils % 0.6 % (0-1.3); Hematocrit 29.9 % (36.0-45.0); Hemoglobin 9.6 g/dL (12.0-15.0); Lymphocytes % 33.9 % (15.3-44.8); MCHC 32.1 g/dL (32.0-36.0); MPV 8.7 fL (7.6-11.3); Monocytes % 9.8 % (3.3-12.3); Neutrophils % 51.7 % (41.7-73.7); Platelets 320 thou/uL (152-406); RBC Red Blood Cell Count 3.83 M/uL (3.86-4.86); Red Cell Distribution Width 15.3 % (12.1-15.2)
--- NOTE | 2023-07-20 08:40 | RAD REPORT ---
EXAM DESCRIPTION: US - Extrem Venous W Compress Casa - 07/20/2023 8:16 am CLINICAL HISTORY: PAIN Bilateral leg edema and swelling. COMPARISON: Extremity Venous Uni Ltd dated 04/16/2022 TECHNIQUE: Real-time sonographic interrogation of the left and right lower extremity deep venous sys tems was performed. FINDINGS: Normal compressibility, flow augmentation, phasic flow and spontaneous flow is identified in both the left and right lower extremity deep venous systems. IMPRESSION: No sonographic evidence of left or right lower extremity deep venous thrombosis.
[2023-07-20 08:59] LABS: ALT/SGPT 123 U/L (13-56); AST/SGOT 33 U/L (15-37); Albumin 3.4 g/dL (3.4-5.0); Albumin/Globulin Ratio 0.8 (1.1-1.8); Alkaline Phosphatase 130 U/L (45-117); Anion Gap 6.6 mEq/L (5.0-15.0); BUN Blood Urea Nitrogen 13 mg/dL (7-18); Bicarbonate 29 mEq/L (21-32); Bilirubin Total 0.2 mg/dL (0.2-1.0); Globulin 4.2 g/dL (2.3-3.5); Glomerular Filtration Rate 86 ml/min (=/>90); Glucose Level 86 mg/dL (74-106); Magnesium 2.1 mg/dL (1.6-2.4); NT PRO-BNP 16 pg/mL (<125); Potassium 3.6 mEq/L (3.5-5.1); Protein, Total 7.6 g/dL (6.4-8.2); Sodium Level 139 mEq/L (136-145)
[2023-07-20 09:01] LABS: Bilirubin Direct < 0.1 mg/dL (0-0.2); Bilirubin Indirect, Calculated ND mg/dL (0.2-0.8); Troponin High Sensitivity < 3.0 pg/mL (<58.9)
[2023-07-20 09:06] LABS: Barbiturates NEGATIVE (NEGATIVE); Benzodiazepines NEGATIVE (NEGATIVE); Cocaine NEGATIVE (NEGATIVE); METHAMPHETAM POSITIVE (NEGATIVE); Methadone NEGATIVE (NEGATIVE); Opiates POSITIVE (NEGATIVE); Phencyclidine NEGATIVE (NEGATIVE); THC Cannibis NEGATIVE (NEGATIVE)
--- NOTE | 2023-07-20 09:21 | ER ---
Nurse's Notes [facility] Name: Jaqueline Coffman Age: 33 yrs Sex: Female : 1990 Arrival Date: 07/20/2023 Time: 04:58 Bed 6 Private MD: Diagnosis: Abuse of other non-psychoactive substances;Edema, unspecified;Adverse effect of amphetamines;Anemia, unspecified Presentation: 07/19 05:56 Chief complaint: Patient states: swelling in bilateral ankles. Passed out around 0400 tm6 and fell. R neck aching. Tooth pain. Coronavirus screen: Vaccine status: Patient reports being unvaccinated. Ebola Screen: Patient negative for fever greater than or equal to 101.5 degrees Fahrenheit, and additional compatible Ebola Virus Disease symptoms Patient denies exposure to infectious person. Patient denies travel to an Ebola-affected area in the 21 days before illness onset. No symptoms or risks identified at this time. Initial Sepsis Screen: Does the patient meet any 2 criteria? No. Patient's initial sepsis screen is negative. Does the patient have a suspected source of infection? No. Patient's initial sepsis screen is negative. Risk Assessment: Do you want to hurt yourself or someone else? Patient reports no desire to harm self or others. Onset of symptoms was July 20, 2023. 05:56 Method Of Arrival: Ambulatory tm6 05:56 Acuity: ROSALINDA 4 tm6 07:30 Acuity: ROSALINDA 3 iw Triage Assessment: 05:59 General: Appears uncomfortable, Behavior is calm, cooperative. Pain: Complains of pain tm6 in mouth, right leg and left leg Pain currently is 9 out of 10 on a pain scale. Quality of pain is described as aching. EENT: Reports tooth pain. Neuro: Level of Consciousness is awake, alert, obeys commands, Oriented to person, place, time, situation. Cardiovascular: Capillary refill < 3 seconds Patient's skin is warm and dry. Respiratory: Airway is patent Respiratory effort is even, unlabored, Respiratory pattern is regular, symmetrical. GI: No signs and/or symptoms were reported involving the gastrointestinal system. Abdomen is flat, non-distended. : No signs and/or symptoms were reported regarding the genitourinary system. Derm: No signs and/or symptoms reported regarding the dermatologic system. Musculoskeletal: Reports pain in right leg and left leg. 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 Flu vaccine is not up to date. - Social history:: Smoking status: Patient reports the use of cigarette tobacco products, smokes one-half pack cigarettes per day, Reported history of juuling and/or vaping. Patient/guardian denies using alcohol. Screenin:38 [facility] ED Fall Risk Assessment (Adult) History of falling in the last 3 months, iw including since admission No falls in past 3 months (0 pts) Confusion or Disorientation No (0 pts) Intoxicated or Sedated No (0 pts) Impaired Gait No (0 pts) Mobility Assist Device Used No (0 pt) Altered Elimination No (0 pt) Score/Fall Risk Level 0 - 2 = Low Risk. Abuse screen: Denies threats or abuse. Denies injuries from another. Nutritional screening: No deficits noted. Tuberculosis screening: No symptoms or risk factors identified. Assessment: 07:37 General: Appears in no apparent distress. Behavior is calm, cooperative. Pain: iw Complains of pain in neck and left leg and right leg and face and mouth. Neuro: Level of Consciousness is awake, alert, obeys commands, Oriented to person, place, time, situation, Moves all extremities. Full function. Cardiovascular: Patient's skin is warm and dry. Respiratory: Respiratory effort is even, unlabored, Respiratory pattern is regular. GI: No signs and/or symptoms were reported involving the gastrointestinal system. Derm: Skin is intact. Musculoskeletal: Range of motion: intact in all extremities. 08:18 Reassessment: Patient appears in no apparent distress at this time. Patient and/or iw family updated on plan of care and expected duration. Pain level reassessed. Patient is alert, oriented x 3, equal unlabored respirations, skin warm/dry/pink. 09:31 Reassessment: Patient appears in no apparent distress at this time. Patient and/or iw family updated on plan of care and expected duration. Pain level reassessed. Patient is alert, oriented x 3, equal unlabored respirations, skin warm/dry/pink. Vital Signs: 05:56 BP 109 / 62; Pulse 92; Resp 18; Temp 97(TE); Pulse Ox 100% on R/A; Weight 63.5 kg; tm6 Height 5 ft. 3 in. ; Pain 9/10; 09:54 BP 117 / 65; Pulse 74; Resp 16; Temp 98; Pulse Ox 100% on R/A; iw 05:56 Body Mass Index 24.80 (63.50 kg, 160.02 cm) tm6 05:56 Pain Scale: Adult 6 ED Course: 05:01 Patient arrived in ED. 2 05:59 Triage completed. tm6 05:59 Arm band placed on left wrist. [facility] 07:09 Snehal Masters, RN is Primary Nurse. iw 07:09 Maurisio Taylor MD is Attending Physician. [facility] 07:15 Patient has correct armband on for positive identification. Provided Education on: iw diagnostics. 07:30 Initial lab(s) drawn, by me, sent to lab. Inserted saline lock: 22 gauge in right iw antecubital area, using aseptic technique. Blood collected. 08:18 Extremity Venous W Compression Casa In Process Unspecified. EDMD 09:54 No provider procedures requiring assistance completed. IV discontinued, intact, iw bleeding controlled, No redness/swelling at site. Pressure dressing applied. Administered Medications: 11:11 Not Given (Patient Refused): ns 0.9% 1000 ml IV at 1 bolus Per protocol; 1000 mL bolus iw Medication: 07:38 VIS not applicable for this client. iw Outcome: 09:20 Discharge ordered by . jamila 09:55 Discharged to home ambulatory, with family, iw 09:55 Condition: good 09:55 Discharge instructions given to patient, Instructed on discharge instructions, follow up and referral plans. Demonstrated understanding of instructions, follow-up care, 09:55 Patient left the ED. Signatures: Dispatcher [employer] EDMD Maurisio Taylor MD MD cha Williams, Irene, RN RN Destinee Cruz [facility] Mike Martins RN RN 6
--- NOTE | 2023-07-20 09:21 | EDPHYS ---
Physician Documentation [facility] Name: Jaqueline Coffman Age: 33 yrs Sex: Female : 1990 Arrival Date: 07/20/2023 Time: 04:58 Bed 6 Private MD: Maurisio Obrien HPI: 07/19 07:37 This 33 yrs old Female presents to ER via Ambulatory with complaints of Leg jamila Swelling, Ankle Swelling. 07:37 The patient presents with pain, swelling. 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 Flu vaccine is not up to date. - Social history:: Smoking status: Patient reports the use of cigarette tobacco products, smokes one-half pack cigarettes per day, Reported history of juuling and/or vaping. Patient/guardian denies using alcohol. ROS: 07:38 Constitutional: Negative for fever, chills, and weight loss, Eyes: Negative for injury, jamila pain, redness, and discharge, ENT: Negative for injury, pain, and discharge, Neck: Negative for injury, pain, and swelling, Cardiovascular: Negative for chest pain, palpitations, and edema, Respiratory: Negative for shortness of breath, cough, wheezing, and pleuritic chest pain, Abdomen/GI: Negative for abdominal pain, nausea, vomiting, diarrhea, and constipation, Back: Negative for injury and pain, : Negative for injury, bleeding, discharge, and swelling, Skin: Negative for injury, rash, and discoloration, Neuro: Negative for headache, weakness, numbness, tingling, and seizure, Psych: Negative for depression, anxiety, suicide ideation, homicidal ideation, and hallucinations, Allergy/Immunology: Negative for hives, rash, and allergies, Endocrine: Negative for neck swelling, polydipsia, polyuria, polyphagia, and marked weight changes, Hematologic/Lymphatic: Negative for swollen nodes, abnormal bleeding, and unusual bruising, 07:38 MS/extremity: Positive for swelling, of the right leg and left leg, Exam: 07:38 Constitutional: This is a well developed, well nourished patient who is awake, alert, jamila and in no acute distress. Head/Face: Normocephalic, atraumatic. Eyes: Pupils equal round and reactive to light, extra-ocular motions intact. Lids and lashes normal. Conjunctiva and sclera are non-icteric and not injected. Cornea within normal limits. Periorbital areas with no swelling, redness, or edema. ENT: Nares patent. No nasal discharge, no septal abnormalities noted. Tympanic membranes are normal and external auditory canals are clear. Oropharynx with no redness, swelling, or masses, exudates, or evidence of obstruction, uvula midline. Mucous membranes moist. Neck: Trachea midline, no thyromegaly or masses palpated, and no cervical lymphadenopathy. Supple, full range of motion without nuchal rigidity, or vertebral point tenderness. No Meningismus. Chest/axilla: Normal chest wall appearance and motion. Nontender with no deformity. No lesions are appreciated. Cardiovascular: Regular rate and rhythm with a normal S1 and S2. No gallops, murmurs, or rubs. Normal PMI, no JVD. No pulse deficits. Respiratory: Lungs have equal breath sounds bilaterally, clear to auscultation and percussion. No rales, rhonchi or wheezes noted. No increased work of breathing, no retractions or nasal flaring. Abdomen/GI: Soft, non-tender, with normal bowel sounds. No distension or tympany. No guarding or rebound. No evidence of tenderness throughout. Back: No spinal tenderness. No costovertebral tenderness. Full range of motion. Skin: Warm, dry with normal turgor. Normal color with no rashes, no lesions, and no evidence of cellulitis. MS/ Extremity: Pulses equal, no cyanosis. Neurovascular intact. Full, normal range of motion. Neuro: Awake and alert, GCS 15, oriented to person, place, time, and situation. Cranial nerves II-XII grossly intact. Motor strength 5/5 in all extremities. Sensory grossly intact. Cerebellar exam normal. Normal gait. Psych: Awake, alert, with orientation to person, place and time. Behavior, mood, and affect are within normal limits. 07:38 ECG was reviewed by the Attending Physician. Vital Signs: 05:56 BP 109 / 62; Pulse 92; Resp 18; Temp 97(TE); Pulse Ox 100% on R/A; Weight 63.5 kg; tm6 Height 5 ft. 3 in. ; Pain 9/10; 09:54 BP 117 / 65; Pulse 74; Resp 16; Temp 98; Pulse Ox 100% on R/A; iw 05:56 Body Mass Index 24.80 (63.50 kg, 160.02 cm) tm6 05:56 Pain Scale: Adult tm6 MDM: 07:09 Patient medically screened. jamila 07:39 Differential diagnosis: contusion, tendonitis. Differential Diagnosis altered mental jamila status, sepsis, flu. Data reviewed: vital signs, nurses notes, lab test result(s), EKG, radiologic studies, doppler, plain films. Consideration of Admission/Observation Escalation of care including admission/observation considered. I considered the following discharge prescriptions or medication management in the emergency department Medications were administered in the Emergency Department. See MAR. Test considered but Not performed: Ultrasound no 2 d echo. Care significantly affected by the following chronic conditions: dental problems , drug abuse. 07/19 06:14 Order name: Basic Metabolic Panel; Complete Time: 09:19 rt 07/19 06:14 Order name: CBC with Diff; Complete Time: 08:57 rt 07/19 06:14 Order name: LFT's; Complete Time: 09:19 rt 07/19 06:14 Order name: Magnesium; Complete Time: 09:19 rt 07/19 06:14 Order name: NT PRO-BNP; Complete Time: 09:19 rt 07/19 06:14 Order name: Troponin HS; Complete Time: 09:19 rt 07/19 06:14 Order name: Test, Serum; Complete Time: 08:57 rt 07/19 07:36 Order name: D-Dimer; Complete Time: 08:57 jamila 07/19 07:36 Order name: UDS; Complete Time: 09:19 jamila 07/19 07:36 Order name: ETOH Level; Complete Time: 09:19 jamila 07/19 07:36 Order name: Asprin; Complete Time: 08:57 jamila 07/19 07:51 Order name: Acetaminophen Level; Complete Time: 09:19 EDMS 07/19 07:36 Order name: US Extremity Venous W Compression [place]; Complete Time: 08:57 jamila 07/19 06:14 Order name: EKG; Complete Time: 06:15 rt 07/19 06:14 Order name: Cardiac monitoring; Complete Time: 07:30 rt 07/19 06:14 Order name: EKG - Nurse/Tech; Complete Time: 07:30 rt 07/19 06:14 Order name: IV Saline Lock; Complete Time: 07:30 rt 07/19 06:14 Order name: Labs collected and sent; Complete Time: 07:30 rt 07/19 06:14 Order name: O2 Per Protocol; Complete Time: 07:19 rt 07/19 06:14 Order name: O2 Sat Monitoring; Complete Time: 07:19 rt 07/19 07:47 Order name: Labs - recollect needed: recollect all the blood/ hemolyzed; Complete Time: eb 07:49 EC:38 Rate is 75 beats/min. Rhythm is regular. QRS [place] is Normal. MI interval is normal. QRS jamila interval is normal. QT interval is normal. No Q waves. T waves are Normal. No ST changes noted. Clinical impression: NSR w/ Non-specific ST/T Changes and No evidence of ischemia. Interpreted by me. Reviewed by me. Administered Medications: 11:11 Not Given (Patient Refused): ns 0.9% 1000 ml IV at 1 bolus Per protocol; 1000 mL bolus iw Disposition Summary: 07/20/23 09:20 Discharge Ordered Notes: Location: Home jamila Problem: new jamila Symptoms: have improved jamila Condition: Stable jamila Diagnosis - Abuse of other non-psychoactive substances jamila - Edema, unspecified jamila - Adverse effect of amphetamines jamila - Anemia, unspecified jamila Followup: jamila - With: Private Physician - When: 2 - 3 days - Reason: Recheck today's complaints, Continuance of care, Re-evaluation by your physician Discharge Instructions: - Discharge Summary Sheet jamila - Finding Treatment for Addiction jamila - Edema jamila - Substance Use Disorder jamila - Supporting Someone With an Addiction jamila - Edema, [id number] jamila - Methamphetamines Use Disorder jamila - Peripheral Edema jamila - Substance Use Disorder and Mental Illness jamila - Supporting Someone With Substance Use Disorder jamila Forms: - Medication Reconciliation Form jamila - Thank You Letter jamila - Antibiotic Education jamila - Prescription Opioid Use jamila - Patient Portal Instructions jamila - Leadership Thank You Letter ajmila Signatures: Dispatcher [employer] Maurisio Olmstead MD MD cha Botello, Elizabeth eb [place], Ryan, MD MD rt Mike Martins RN RN tm6 Snehal Masters RN iw Corrections: (The following items were deleted from the chart) 07:51 07:37 ACETAMINOPHEN+[id number].LAB.BRZ ordered. EDMS EDMS
[2023-07-20 10:28] VITALS: BP 117/65; TEMP 98; O2SAT 100
--- NOTE | 2023-07-21 14:17 | EKG ---
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
== END ==
LOC: ER 04:58
DX: F55.8 Abuse of other non-psychoactive substances (principal); R60.9 Edema, unspecified; T43.625A Adverse effect of amphetamines, initial encounter; D64.9 Anemia, unspecified; F17.210 Nicotine dependence, cigarettes, uncomplicated
CPT/HCPCS: 36415; 80048; 80076; 80143; 80179; 80307; 82077; 83735; 83880; 84484; 84703; 85025; 85379; 93005; 93970; 99284